=== PATIENT | male | born 1990 | race Caucasian/White ===

== ENCOUNTER 2017-10-05 22:04 | Emergency (ER) | payer BC ==
[2017-10-05] MEDS ORDERED: KETOROLAC 30 MG/ML 1 ML VIAL IVP STA (23:00)
[2017-10-05] MEDS ORDERED: SODIUM CHLORIDE 0.9% 1,000 ML IV STA ×2 (23:00)
[2017-10-05] MEDS ORDERED: ONDANSETRON 4 MG/2 ML VIAL IVP STA (23:00)
[2017-10-05] MEDS ORDERED: ACETAMINOPHEN TAB 500 MG TAB PO STA (23:01)
[2017-10-05] MEDS ORDERED: MORPHINE SULFATE 4 MG/ML SYRINGE IVP STA (23:08)
[2017-10-05 23:45] LABS: Basophils % (A) 0 %; Eosinophils % (A) 1 %; HCT 38.1 % (39.0-53.0); HGB 13.5 gm/dL (13.0-17.5); Lymphocytes # (A) 0.7 k/uL (1.0-4.8); Lymphocytes % (A) 10 %; MCH 30.6 pg (25.0-35.0); MCHC 35.4 g/dL (31.0-37.0); MCV 86.5 fL (80.0-100.0); Mean Platelet Volume 7.8; Monocytes # (A) 0.5 k/uL (0-1.0); Monocytes % (A) 7 %; Neutrophils # (A) 5.6 k/uL (1.3-7.7); Neutrophils % (A) 82 %; Platelet Count 156 k/uL (150-450); RDW 13.3 % (11.5-15.5); WBC 6.8 k/uL (3.8-10.6)
[2017-10-05 23:56] LABS: ALT 33 U/L (21-72); AST 28 U/L (17-59); Albumin 4.5 g/dL (3.5-5.0); Alkaline Phosphatase 59 U/L (38-126); Amylase 49 U/L (30-110); Anion Gap 13 mmol/L; Blood Urea Nitrogen 15 mg/dL (9-20); Calcium 9.2 mg/dL (8.4-10.2); Carbon Dioxide 21 mmol/L (22-30); Chloride 104 mmol/L (98-107); Glucose 90 mg/dL (74-99); Lipase 66 U/L (23-300); Potassium 4.1 mmol/L (3.5-5.1); Sodium 138 mmol/L (137-145); Total Bilirubin 1.1 mg/dL (0.2-1.3); Total Protein 6.9 g/dL (6.3-8.2)
--- NOTE | 2017-10-05 23:56 | ED ---
Abdominal Pain HPI <Elier Kathleen - Last Filed: 10/06/17 00:49> - General Source: patient, RN notes reviewed, old records reviewed Mode of arrival: ambulatory Limitations: no limitations <Kimberly Francois - Last Filed: 10/06/17 04:43> - General Chief Complaint: Abdominal Pain Stated Complaint: Abd pain Time Seen by Provider: 10/05/17 22:59 - History of Present Illness Initial Comments: This Patient is a 26-year-old male with chief complaint of intermittent fevers for the past 3 days. Patient reports that he isn't having off and on right- sided abdominal pain. He reports that today it seemed to be more severe when he came home from work. It's painful whenever he takes a deep breath or moves. Patient states that he is relatively healthy. No significant past medical history. Patient states that he is took some Motrin Tylenol earlier today nothing recently. He rests emergency Department with fever 102. No vomiting but does feel nauseated. He reports he's been having some mild diarrhea. No blood in his stools. (Kimberly Francois) - Related Data Previous Rx's Medication Instructions Recorded Ciprofloxacin HCl [Cipro] 500 mg PO Q12HR 10 Days tab 10/06/17 metroNIDAZOLE [Flagyl] 500 mg PO TID #30 tab 10/06/17 Allergies Allergy/AdvReac Type Severity Reaction Status Date / Time No Known Allergies Allergy Verified 10/05/17 22:27 Review of Systems ROS Other: All systems not noted in ROS Statement are negative. <Elier Kathleen - Last Filed: 10/06/17 00:49> ROS Other: All systems not noted in ROS Statement are negative. <Kimberly Francois - Last Filed: 10/06/17 04:43> ROS Statement: Those systems with pertinent positive or pertinent negative responses have been documented in the HPI. Past Medical History Past Medical History: No Reported History History of Any Multi-Drug Resistant Organisms: None Reported Past Surgical History: No Surgical Hx Reported Past Psychological History: ADD/ADHD, Anxiety, PTSD Smoking Status: Current every day smoker Past Alcohol Use History: None Reported Past Drug Use History: None Reported <Kimberly Francois - Last Filed: 10/06/17 04:43> General Exam <Elier Kathleen - Last Filed: 10/06/17 00:49> Limitations: no limitations General appearance: alert, in no apparent distress Head exam: Present: atraumatic, normocephalic, normal inspection Eye exam: Present: normal appearance, PERRL, EOMI. Absent: scleral icterus, conjunctival injection, periorbital swelling ENT exam: Present: normal exam, mucous membranes moist Neck exam: Present: normal inspection. Absent: tenderness, meningismus, lymphadenopathy Respiratory exam: Present: normal lung sounds bilaterally. Absent: respiratory distress, wheezes, rales, rhonchi, stridor Cardiovascular Exam: Present: regular rate, normal rhythm, normal heart sounds. Absent: systolic murmur, diastolic murmur, rubs, gallop, clicks GI/Abdominal exam: Present: soft, tenderness (Patient has severe guarding and tenderness over the right upper and right lower quadrants.), normal bowel sounds. Absent: distended, guarding, rebound, rigid Extremities exam: Present: normal inspection, full ROM, normal capillary refill. Absent: tenderness, pedal edema, joint swelling, calf tenderness Back exam: Present: normal inspection Neurological exam: Present: alert, oriented X3, CN II-XII intact Psychiatric exam: Present: normal affect, normal mood Skin exam: Present: warm, dry, intact, normal color. Absent: rash <Kimberly Francois - Last Filed: 10/06/17 04:43> - General Exam Comments Initial Comments: This is an alert and oriented 26-year-old male. Patient does. Be in moderate discomfort. (Kimberly Francois) Vital Signs 10/05/17 10/05/17 10/06/17 22:24 23:27 02:58 Temperature 102.2 F H 100.3 F H 97.6 F Pulse Rate 104 H 73 Respiratory 18 16 Rate Blood Pressure 127/75 102/56 O2 Sat by Pulse 99 98 Oximetry Medical Decision Making - Lab Data Result diagrams: 10/05/17 23:24 10/05/17 23:24 <Elier Kathleen - Last Filed: 10/06/17 00:49> - Lab Data Result diagrams: 10/05/17 23:24 10/05/17 23:24 - Radiology Data Radiology results: report reviewed <Kimberly Francois - Last Filed: 10/06/17 04:43> - Medical Decision Making Medical decision making; is a 26-year-old male with a complaint of abdominal pain mainly from the right upper quadrant and right lower quadrant. Patient reports that 3 days ago started having abdominal discomfort and not feeling well in general. He developed a fever at that time. Currently temperature is 102. The patient white count is normal. CAT scan was reviewed and the radiologist's impression is there are mildly dilated distal small bowel loops in the pelvis consistent with ileus. Appendix appears within normal limits. This CAT scan was done without oral contrast. Examination finds patient tender with palpation with guarding from the right upper quadrant the right lower quadrant. Hypoactive bowel sounds.awaiting results of the urinalysis. Case be discussed with medicine in general surgeon on-call. Dr. Kathleen (Elier Kathleen) Case discussed with oncall Surgeon whom states that patient should be admitted to Medicine. Tenderness explained to Dr. Hillman, and he also examined patient. He was doing better at this time. Discussed with normal WBC and normal CT scan besides ileus. Dr. Hillman and I explained this could likely be early appendicitis without lab or CT evidence. I did give Pt Zosyn. Dr. Hillman recommends outpatient treatment with close return parameters. At this time I discussed discharge home and to have close follow up and strict return parameters. In the meantime will treat for colitis or ilues with Cipro and flagyl.Patient agrees to plan. (Kimberly Francois) - Lab Data Lab Results 10/05/17 10/05/17 10/05/17 Range/Units 23:24 23:24 23:24 WBC 6.8 (3.8-10.6) k/uL RBC 4.40 (4.30-5.90) m/uL Hgb 13.5 (13.0-17.5) gm/dL Hct 38.1 L (39.0-53.0) % MCV 86.5 (80.0-100.0) fL MCH 30.6 (25.0-35.0) pg MCHC 35.4 (31.0-37.0) g/dL RDW 13.3 (11.5-15.5) % Plt Count 156 (150-450) k/uL Neutrophils % 82 % Lymphocytes % 10 % Monocytes % 7 % Eosinophils % 1 % Basophils % 0 % Neutrophils # 5.6 (1.3-7.7) k/uL Lymphocytes # 0.7 L (1.0-4.8) k/uL Monocytes # 0.5 (0-1.0) k/uL Eosinophils # 0.0 (0-0.7) k/uL Basophils # 0.0 (0-0.2) k/uL Sodium 138 (137-145) mmol/L Potassium 4.1 (3.5-5.1) mmol/L Chloride 104 (98-107) mmol/L Carbon Dioxide 21 L (22-30) mmol/L Anion Gap 13 mmol/L BUN 15 (9-20) mg/dL Creatinine 1.00 (0.66-1.25) mg/dL Est GFR (CKD-EPI)AfAm >90 (>60 ml/min/1.73 sqM) Est GFR (CKD-EPI)NonAf >90 (>60 ml/min/1.73 sqM) Glucose 90 (74-99) mg/dL Plasma Lactic Acid Junior 0.7 (0.7-2.0) mmol/L Calcium 9.2 (8.4-10.2) mg/dL Total Bilirubin 1.1 (0.2-1.3) mg/dL AST 28 (17-59) U/L ALT 33 (21-72) U/L Alkaline Phosphatase 59 (38-126) U/L Total Protein 6.9 (6.3-8.2) g/dL Albumin 4.5 (3.5-5.0) g/dL Amylase 49 (30-110) U/L Lipase 66 (23-300) U/L Urine Color Urine Appearance (Clear) Urine pH (5.0-8.0) Ur Specific [place] (1.001-1.035) Urine Protein (Negative) Urine Glucose (UA) (Negative) Urine Ketones (Negative) Urine Blood (Negative) Urine Nitrite (Negative) Urine Bilirubin (Negative) Urine Urobilinogen (<2.0) mg/dL Ur Leukocyte Esterase (Negative) Urine RBC (0-5) /hpf Urine WBC (0-5) /hpf Group A Strep Rapid (Negative) 10/06/17 10/06/17 Range/Units 00:59 02:34 WBC (3.8-10.6) k/uL RBC (4.30-5.90) m/uL Hgb (13.0-17.5) gm/dL Hct (39.0-53.0) % MCV (80.0-100.0) fL MCH (25.0-35.0) pg MCHC (31.0-37.0) g/dL RDW (11.5-15.5) % Plt Count (150-450) k/uL Neutrophils % % Lymphocytes % % Monocytes % % Eosinophils % % Basophils % % Neutrophils # (1.3-7.7) k/uL Lymphocytes # (1.0-4.8) k/uL Monocytes # (0-1.0) k/uL Eosinophils # (0-0.7) k/uL Basophils # (0-0.2) k/uL Sodium (137-145) mmol/L Potassium (3.5-5.1) mmol/L Chloride (98-107) mmol/L Carbon Dioxide (22-30) mmol/L Anion Gap mmol/L BUN (9-20) mg/dL Creatinine (0.66-1.25) mg/dL Est GFR (CKD-EPI)AfAm (>60 ml/min/1.73 sqM) Est GFR (CKD-EPI)NonAf (>60 ml/min/1.73 sqM) Glucose (74-99) mg/dL Plasma Lactic Acid Junior (0.7-2.0) mmol/L Calcium (8.4-10.2) mg/dL Total Bilirubin (0.2-1.3) mg/dL AST (17-59) U/L ALT (21-72) U/L Alkaline Phosphatase (38-126) U/L Total Protein (6.3-8.2) g/dL Albumin (3.5-5.0) g/dL Amylase (30-110) U/L Lipase (23-300) U/L Urine Color Light Yellow Urine Appearance Clear (Clear) Urine pH 6.0 (5.0-8.0) Ur Specific [place] 1.033 (1.001-1.035) Urine Protein Negative (Negative) Urine Glucose (UA) Negative (Negative) Urine Ketones Negative (Negative) Urine Blood Small H (Negative) Urine Nitrite Negative (Negative) Urine Bilirubin Negative (Negative) Urine Urobilinogen <2.0 (<2.0) mg/dL Ur Leukocyte Esterase Negative (Negative) Urine RBC 1 (0-5) /hpf Urine WBC <1 (0-5) /hpf Group A Strep Rapid Negative (Negative) - Radiology Data Mildly dilated distal small bowel loops in the pelvis consistent with ileus. Appendix appears normal. (Kimberly Francois) Disposition <HeverElier - Last Filed: 10/06/17 00:49> Is patient prescribed a controlled substance at d/c from ED?: No When asked, does pt state using other controlled substances?: No If prescribed controlled substance>3 days was MAPS reviewed?: No If opioid is for acute pain is fill amount 7 days or less?: No If Rx opioid, was Start Talking consent form obtained?: No Time of Disposition: 02:58 <Kimberly Francois - Last Filed: 10/06/17 04:43> Clinical Impression: Fever, Right lateral abdominal pain Disposition: HOME SELF-CARE Condition: Good Instructions: Acute Abdominal Pain (ED) Additional Instructions: Patient advised to return to emergency department if symptoms are continued persist or worsen within the next 12-24 hours. Clear liquids. Alternate Motrin and Tylenol. Take the medication as prescribed. Is follow-up with primary care physician. Prescriptions: Ciprofloxacin HCl [Cipro] 500 mg PO Q12HR 10 Days tab metroNIDAZOLE [Flagyl] 500 mg PO TID #30 tab Referrals: None,Stated [Primary Care Provider] - 1-2 days Mara Santana MD [STAFF PHYSICIAN] - 1-2 days
--- NOTE | 2017-10-06 00:24 | CT ---
EXAMINATION TYPE: CT abdomen pelvis w con DATE OF EXAM: 10/06/2017 COMPARISON: None HISTORY: fever, RLQ pain CT DLP: 383.80 mGycm Automated exposure control for dose reduction was used. TECHNIQUE: Helical acquisition of images was performed from the lung bases through the pelvis. CONTRAST: Performed without Oral Contrast and with IV Contrast, patient injected with 100 mL of Isovue 300. FINDINGS: Lung bases are clear. There is no pleural effusion. There is no pericardial effusion. There are small calcified splenic granulomata. Liver appears normal. There is no pancreatic mass. Gallbladder appear s normal. There is no adrenal mass. Kidneys show satisfactory contrast opacification. There is no hydronephrosi s. Bladder distends smoothly. There is no ascites. There are some mildly distended small bowel loops in the pelvis with fluid. These measure up to 2.9 cm. Appendix appears to be posterior and not enlarg ed. There is no sign of a thickened appendix. I see no small bowel wall thickening. The bony structur es are intact. IMPRESSION: THERE ARE MILDLY DILATED DISTAL SMALL BOWEL LOOPS IN THE PELVIS CONSISTENT WITH ILEUS. APPENDIX APPEA RS NORMAL.
[2017-10-06 01:19] LABS: Appearance,Urine Clear (Clear); Bilirubin,Urine Negative (Negative); Blood,Urine Small (Negative); Color,Urine Light Yellow; Glucose,Urine (UA) Negative (Negative); Ketones,Urine Negative (Negative); Leukocyte Esterase,Urine Negative (Negative); Nitrite,Urine Negative (Negative); Protein,Urine Negative (Negative); RBC,Urine 1 /hpf (0-5); Specific Gravity,Urine 1.033 (1.001-1.035); Urobilinogen,Urine <2.0 mg/dL (<2.0); WBC,Urine <1 /hpf (0-5)
[2017-10-06] MEDS: PIPERACILLIN-TAZOBACTAM 3.375 GM in DEXTROSE/WATER 1 50ML.BAG IVPB STA ×2 (01:39→01:46)
[2017-10-06 03:00] VITALS: BP 102/56; PULSE 73; RESP 16; TEMP 97.6
== END 2017-10-06 03:54 | disposition home or self-care (01) ==
LOC: EC 22:04
DX: R10.9 Unspecified abdominal pain (principal); R50.9 Fever, unspecified; R11.0 Nausea; F17.200 Nicotine dependence, unspecified, uncomplicated
CPT/HCPCS: 36415; 80053; 82150; 83605; 83690; 85025; 81001; 87040; 87081; 87430; 74177; 99285; 96365; 96366; 96375 ×3; 96361 ×2; J2270; J2405; J1885; J2543; Q9967

== ENCOUNTER 2017-10-07 22:04 | Observation (INO) | payer BC ==
--- NOTE | 2017-10-07 22:44 | XR ---
EXAMINATION TYPE: XR KUB DATE OF EXAM: 10/07/2017 COMPARISON: NONE HISTORY: Abdominal pain TECHNIQUE: 2 views FINDINGS: There is no sign of intestinal obstruction or pneumoperitoneum. Fecal pattern is normal. Th ere are no pathologic calcifications over the kidneys. Lung bases are clear. IMPRESSION: Nonacute abdomen.
[2017-10-07 23:00] LABS: Basophils % (A) 0 %; Eosinophils # (A) 0.1 k/uL (0-0.7); Eosinophils % (A) 1 %; HCT 39.6 % (39.0-53.0); HGB 13.9 gm/dL (13.0-17.5); Lymphocytes # (A) 2.1 k/uL (1.0-4.8); Lymphocytes % (A) 35 %; MCH 30.4 pg (25.0-35.0); MCHC 35.1 g/dL (31.0-37.0); MCV 86.6 fL (80.0-100.0); Mean Platelet Volume 7.9; Monocytes # (A) 0.5 k/uL (0-1.0); Monocytes % (A) 8 %; Neutrophils # (A) 3.4 k/uL (1.3-7.7); Neutrophils % (A) 55 %; Platelet Count 179 k/uL (150-450); RBC 4.57 m/uL (4.30-5.90); RDW 13.2 % (11.5-15.5); WBC 6.1 k/uL (3.8-10.6)
[2017-10-07 23:14] LABS: ALT 29 U/L (21-72); AST 25 U/L (17-59); Albumin 4.2 g/dL (3.5-5.0); Alkaline Phosphatase 49 U/L (38-126); Amylase 47 U/L (30-110); Anion Gap 9 mmol/L; Blood Urea Nitrogen 13 mg/dL (9-20); Calcium 9.2 mg/dL (8.4-10.2); Carbon Dioxide 27 mmol/L (22-30); Chloride 104 mmol/L (98-107); Glucose 74 mg/dL (74-99); Lipase 114 U/L (23-300); Sodium 140 mmol/L (137-145); Total Bilirubin 0.7 mg/dL (0.2-1.3); Total Protein 6.9 g/dL (6.3-8.2)
[2017-10-07] MEDS ORDERED: IBUPROFEN 600 MG TAB PO STA (23:50)
[2017-10-07] MEDS ORDERED: ACETAMINOPHEN TAB 500 MG TAB PO STA (23:50)
--- NOTE | 2017-10-08 01:03 | US ---
EXAMINATION TYPE: US gallbladder DATE OF EXAM: 10/08/2017 COMPARISON: NONE CLINICAL HISTORY: Pain. RUQ pain EXAM MEASUREMENTS: Liver Length: 14.6 cm Gallbladder Wall: 0.28 cm CBD: 0.22 cm Right Kidney: 9.2 x 3.8 x 5.2 cm Pancreas: wnl Liver: wnl Gallbladder: Ring down artifact visualized. Evidence for sonographic Cifuentes's sign: No CBD: wnl Right Kidney: wnl IMPRESSION: Contracted gallbladder. No gallstones or dilated ducts.
--- NOTE | 2017-10-08 01:17 | ED ---
General Adult HPI - General Chief complaint: Abdominal Pain Stated complaint: abdominal pain Time Seen by Provider: 10/07/17 22:15 Source: patient, RN notes reviewed Mode of arrival: ambulatory Limitations: no limitations - History of Present Illness Initial comments: This is a 26-year-old male who presents to the emergency department complaining of abdominal pain for a week. Patient states she was seen in the emergency department on Saturday and had a CAT scan and lab work and all was normal. Patient was placed on antibiotics at that time. Patient states he's also been spiking fevers as high as 104 since the abdominal pain started. Patient denies nausea vomiting or has had 1 day of diarrhea last . Patient states the pain was initially in the right lower quadrant but now he has pain in the right upper quadrant which spreads across to the epigastric area. Patient denies any chest pain patient does any cough patient denies any shortness of breath or difficulty breathing. - Related Data Previous Rx's Medication Instructions Recorded Ciprofloxacin HCl [Cipro] 500 mg PO Q12HR 10 Days tab 10/06/17 metroNIDAZOLE [Flagyl] 500 mg PO TID #30 tab 10/06/17 Allergies Allergy/AdvReac Type Severity Reaction Status Date / Time No Known Allergies Allergy Verified 10/07/17 23:45 Review of Systems ROS Statement: Those systems with pertinent positive or pertinent negative responses have been documented in the HPI. ROS Other: All systems not noted in ROS Statement are negative. Past Medical History Past Medical History: No Reported History History of Any Multi-Drug Resistant Organisms: None Reported Past Surgical History: No Surgical Hx Reported Past Psychological History: ADD/ADHD, Anxiety, PTSD Smoking Status: Current every day smoker Past Alcohol Use History: None Reported Past Drug Use History: None Reported General Exam - General Exam Comments Initial Comments: GENERAL: Patient is well-developed and well-nourished. Patient is nontoxic and well- hydrated and is in moderate distress. ENT: Neck is soft and supple. No significant lymphadenopathy is noted. Oropharynx is clear. Moist mucous membranes. EYES: The sclera were anicteric and conjunctiva were pink and moist. Extraocular movements were intact and pupils were equal round and reactive to light. Eyelids were unremarkable. PULMONARY: Unlabored respirations. Good breath sounds bilaterally. No audible rales rhonchi or wheezing was noted. CARDIOVASCULAR: There is a regular rate and rhythm without any murmurs gallops or rubs. Femoral pulses are equal bilaterally ABDOMEN: Patient has rebound tenderness in the right upper quadrant. SKIN: Skin is clear with no lesions or rashes and otherwise unremarkable. NEUROLOGIC: Patient is alert and oriented x3. Cranial nerves II through XII are grossly intact. Motor and sensory are also intact. Normal speech, volume and content. Symmetrical smile. MUSCULOSKELETAL: Normal extremities with adequate strength and full range of motion. No lower extremity swelling or edema. No calf tenderness. LYMPHATICS: No significant lymphadenopathy is noted PSYCHIATRIC: Normal psychiatric evaluation. Limitations: no limitations Course Vital Signs 10/07/17 10/07/17 10/08/17 22:15 23:45 01:05 Temperature 99.8 F H 101 F H 99.8 F H Pulse Rate 83 72 66 Respiratory 18 18 18 Rate Blood Pressure 124/74 127/70 115/75 O2 Sat by Pulse 98 98 99 Oximetry Medical Decision Making - Lab Data Result diagrams: 10/07/17 22:49 10/07/17 22:49 Lab Results 10/07/17 10/07/17 10/07/17 Range/Units 22:49 22:49 22:49 WBC 6.1 (3.8-10.6) k/uL RBC 4.57 (4.30-5.90) m/uL Hgb 13.9 (13.0-17.5) gm/dL Hct 39.6 (39.0-53.0) % MCV 86.6 (80.0-100.0) fL MCH 30.4 (25.0-35.0) pg MCHC 35.1 (31.0-37.0) g/dL RDW 13.2 (11.5-15.5) % Plt Count 179 (150-450) k/uL Neutrophils % 55 % Lymphocytes % 35 % Monocytes % 8 % Eosinophils % 1 % Basophils % 0 % Neutrophils # 3.4 (1.3-7.7) k/uL Lymphocytes # 2.1 (1.0-4.8) k/uL Monocytes # 0.5 (0-1.0) k/uL Eosinophils # 0.1 (0-0.7) k/uL Basophils # 0.0 (0-0.2) k/uL Sodium 140 (137-145) mmol/L Potassium 4.0 (3.5-5.1) mmol/L Chloride 104 (98-107) mmol/L Carbon Dioxide 27 (22-30) mmol/L Anion Gap 9 mmol/L BUN 13 (9-20) mg/dL Creatinine 1.00 (0.66-1.25) mg/dL Est GFR (CKD-EPI)AfAm >90 (>60 ml/min/1.73 sqM) Est GFR (CKD-EPI)NonAf >90 (>60 ml/min/1.73 sqM) Glucose 74 (74-99) mg/dL Plasma Lactic Acid Junior 0.8 (0.7-2.0) mmol/L Calcium 9.2 (8.4-10.2) mg/dL Total Bilirubin 0.7 (0.2-1.3) mg/dL AST 25 (17-59) U/L ALT 29 (21-72) U/L Alkaline Phosphatase 49 (38-126) U/L Total Protein 6.9 (6.3-8.2) g/dL Albumin 4.2 (3.5-5.0) g/dL Amylase 47 (30-110) U/L Lipase 114 (23-300) U/L Disposition Clinical Impression: Abdominal pain, Fever of unknown origin, Acute infection of female upper reproductive tract Disposition: ADMITTED IP TO THIS HOSP Referrals: None,Stated [Primary Care Provider] - 1-2 days Time of Disposition: 01:27
[2017-10-08] MEDS ORDERED: PIPERACILLIN-TAZOBACTAM 3.375 GM in DEXTROSE/WATER 1 50ML.BAG IVPB STA (01:21)
[2017-10-08] MEDS ORDERED: SODIUM CHLORIDE 0.9% 1,000 ML IV ONE (01:22)
[2017-10-08 01:51] LABS: Appearance,Urine Clear (Clear); Bilirubin,Urine Negative (Negative); Blood,Urine Trace (Negative); Color,Urine Yellow; Glucose,Urine (UA) Negative (Negative); Hyaline Casts,Urine 1 /lpf (0-2); Ketones,Urine Negative (Negative); Leukocyte Esterase,Urine Negative (Negative); Mucus,Urine Rare /hpf; Nitrite,Urine Negative (Negative); Protein,Urine Negative (Negative); RBC,Urine 2 /hpf (0-5); Specific Gravity,Urine 1.011 (1.001-1.035); Urobilinogen,Urine <2.0 mg/dL (<2.0); WBC,Urine <1 /hpf (0-5)
[2017-10-08] MEDS: PIPERACILLIN-TAZOBACTAM 3.375 GM in DEXTROSE/WATER 1 50ML.BAG IVPB SCH ×2 (08:36→18:04)
[2017-10-08] MEDS ORDERED: IOPAMIDOL-300 CONTRAST 30 ML VIAL (ORAL USE) PO PRN (11:43)
[2017-10-08] MEDS ORDERED: ONDANSETRON 4 MG/2 ML VIAL IVP PRN (11:45)
--- NOTE | 2017-10-08 12:55 | P.CONS ---
History of Present Illness - Reason for Consult Consult date: 10/08/17 Fever of unknown origin - History of Present Illness This is a 26-year-old male patient who has no significant past medical history. He states that he had onset of abdominal pain about 1 week ago and the next day he started having fever up to 104. Positive nausea which is mild without vomiting. He has since had diarrhea one day on and a small amount on Saturday. His pain is in the right upper quadrant and epigastric area He came into [facility] emergency center on Saturday and underwent a CAT scan that showed mildly dilated distal small bowel loops in the pelvis consistent with ileus. Appendix appears normal. His temperature max is 102.2, normal white count is 6.8. The on-call surgeon was contacted, patient was given 1 dose of Zosyn and patient was discharged home on Cipro and Flagyl. Patient states that he went home and he slept all day on Saturday and he had his prescriptions filled and started taking them on Saturday. Flagyl causes vomiting for which he stopped taking it. He has continued to take Cipro. He denies having any improvement. He came back into [facility] emergency center for evaluation and was found to have a temperature max of 101, white count is 6.1, creatinine 1, lactic acid 0.8, albumin 4.2. Urinalysis was negative for nitrates and leukoesterase. Blood culture status received. Patient was started on Zosyn. KUB shows nonacute abdomen. CAT scan with contrast of the abdomen and pelvis has been ordered. His blood culture from October 05 showing no growth after 48 hours and a group A strep cultures finalized with no growth. Review of Systems All systems: negative Constitutional: Reports anorexia, Reports chills, Reports fever, Reports poor appetite Eyes: denies blurred vision, denies pain Ears, nose, mouth and throat: Reports sore throat, Denies dental pain, Denies headache, Denies mouth pain Cardiovascular: Denies chest pain, Denies decreased exercise tolerance, Denies dyspnea on exertion, Denies edema, Denies leg edema, Denies lightheadedness, Denies shortness of breath, Denies syncope Respiratory: Denies cough, Denies cough with sputum, Denies dyspnea, Denies excessive sputum, Denies hemoptysis, Denies home oxygen, Denies wheezing Gastrointestinal: Reports abdominal pain, Reports diarrhea, Reports loss of appetite, Reports nausea, Denies vomiting Genitourinary: Denies dysuria, Denies urinary frequency, Denies urinary retention Musculoskeletal: Denies myalgias Integumentary: Denies pruritus, Denies rash, Denies wounds Neurological: Denies numbness, Denies weakness Psychiatric: Denies anxiety, Denies depression Endocrine: Denies fatigue, Denies weight change Past Medical History Past Medical History: Pneumonia Additional Past Medical History / Comment(s): Recent constipation with diarrhea 10/05/17 and prior to that solid stool 09/28/17, bacterial pneumonia 10 yrs ago History of Any Multi-Drug Resistant Organisms: None Reported Past Surgical History: No Surgical Hx Reported Additional Past Anesthesia/Blood Transfusion Reaction / Comm: Pt has never had anesthesia. Pt has never received blood. Past Psychological History: ADD/ADHD, Anxiety, PTSD Smoking Status: Current every day smoker Additional Past Alcohol Use History / Comment(s): Patient is a smoker of pack per day and started 2007. He lives at home with his and 2 children. 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 He has served in the [employer] in [employer]. - Past Family History Father Additional Family Medical History / Comment(s): Father committed suicide. Mother Family Medical History: Cancer Additional Family Medical History / Comment(s): Mother from metastatic breast cancer at the age of 49yrs. Medications and Allergies Home Medications Medication Instructions Recorded Confirmed Type Ciprofloxacin HCl [Cipro] 500 mg PO Q12HR 10 Days tab 10/06/17 10/07/17 Rx metroNIDAZOLE [Flagyl] 500 mg PO TID #30 tab 10/06/17 10/07/17 Rx Allergies Allergy/AdvReac Type Severity Reaction Status Date / Time No Known Allergies Allergy Verified 10/07/17 23:45 Physical Exam Vitals: Vital Signs Temp Pulse Resp BP Pulse Ox 10/08/17 06:20 97.9 F 52 L 19 105/59 100 10/08/17 01:41 98.7 F 10/08/17 01:05 99.8 F H 66 18 115/75 99 10/07/17 23:45 101 F H 72 18 127/70 98 10/07/17 22:15 99.8 F H 83 18 124/74 98 Intake and Output 07/10/08/17 10/08/17 22:59 06:59 14:59 Other: Weight 63.503 kg Gen: This is a 26-year-old male patient in the ER stretcher. Patient appears somewhat uncomfortable but in no acute distress. HEENT: Head is atraumatic, normocephalic. Pupils equal, round. Sclerae is anicteric. NECK: Supple. No JVD. No lymphadenopathy. No thyromegaly. LUNGS: Clear to auscultation. No wheezes or rhonchi. No intercostal retractions. HEART: Regular rate and rhythm. No murmur. ABDOMEN: Soft. Bowel sounds are present. No masses. Right upper quadrant and epigastric tenderness. EXTREMITIES: No pedal edema. No calf tenderness. Dorsalis pedis +2 bilaterally. NEUROLOGICAL: Patient is awake, alert and oriented x3. Cranial nerves 2 through 12 are grossly intact. Results Results: Laboratory Results WBC 6.1 k/uL (3.8-10.6) 10/07/17 22:49 RBC 4.57 m/uL (4.30-5.90) 10/07/17 22:49 Hgb 13.9 gm/dL (13.0-17.5) 10/07/17 22:49 Hct 39.6 % (39.0-53.0) 10/07/17 22:49 MCV 86.6 fL (80.0-100.0) 10/07/17 22:49 MCH 30.4 pg (25.0-35.0) 10/07/17 22:49 MCHC 35.1 g/dL (31.0-37.0) 10/07/17 22:49 RDW 13.2 % (11.5-15.5) 10/07/17 22:49 Plt Count 179 k/uL (150-450) 10/07/17 22:49 Neutrophils % 55 % 10/07/17 22:49 Lymphocytes % 35 % 10/07/17 22:49 Monocytes % 8 % 10/07/17 22:49 Eosinophils % 1 % 10/07/17 22:49 Basophils % 0 % 10/07/17 22:49 Neutrophils # 3.4 k/uL (1.3-7.7) 10/07/17 22:49 Lymphocytes # 2.1 k/uL (1.0-4.8) 10/07/17 22:49 Monocytes # 0.5 k/uL (0-1.0) 10/07/17 22:49 Eosinophils # 0.1 k/uL (0-0.7) 10/07/17 22:49 Basophils # 0.0 k/uL (0-0.2) 10/07/17 22:49 Sodium 140 mmol/L (137-145) 10/07/17 22:49 Potassium 4.0 mmol/L (3.5-5.1) 10/07/17 22:49 Chloride 104 mmol/L (98-107) 10/07/17 22:49 Carbon Dioxide 27 mmol/L (22-30) 10/07/17 22:49 Anion Gap 9 mmol/L 10/07/17 22:49 BUN 13 mg/dL (9-20) 10/07/17 22:49 Creatinine 1.00 mg/dL (0.66-1.25) 10/07/17 22:49 Est GFR (CKD-EPI)AfAm >90 (>60 ml/min/1.73 sqM) 10/07/17 22:49 Est GFR (CKD-EPI)NonAf >90 (>60 ml/min/1.73 sqM) 10/07/17 22:49 Glucose 74 mg/dL (74-99) 10/07/17 22:49 Plasma Lactic Acid Junior 0.8 mmol/L (0.7-2.0) 10/07/17 22:49 Calcium 9.2 mg/dL (8.4-10.2) 10/07/17 22:49 Total Bilirubin 0.7 mg/dL (0.2-1.3) 10/07/17 22:49 AST 25 U/L (17-59) 10/07/17 22:49 ALT 29 U/L (21-72) 10/07/17 22:49 Alkaline Phosphatase 49 U/L (38-126) 10/07/17 22:49 Total Protein 6.9 g/dL (6.3-8.2) 10/07/17 22:49 Albumin 4.2 g/dL (3.5-5.0) 10/07/17 22:49 Amylase 47 U/L (30-110) 07/16/18 22:49 Lipase 114 U/L (23-300) 10/07/17 22:49 Urine Color Yellow 10/08/17 01:07 Urine Appearance Clear (Clear) 10/08/17 01:07 Urine pH 6.0 (5.0-8.0) 10/08/17 01:07 Ur Specific [place] 1.011 (1.001-1.035) 10/08/17 01:07 Urine Protein Negative (Negative) 10/08/17 01:07 Urine Glucose (UA) Negative (Negative) 10/08/17 01:07 Urine Ketones Negative (Negative) 10/08/17 01:07 Urine Blood Trace (Negative) H 10/08/17 01:07 Urine Nitrite Negative (Negative) 10/08/17 01:07 Urine Bilirubin Negative (Negative) 10/08/17 01:07 Urine Urobilinogen <2.0 mg/dL (<2.0) 10/08/17 01:07 Ur Leukocyte Esterase Negative (Negative) 10/08/17 01:07 Urine RBC 2 /hpf (0-5) 10/08/17 01:07 Urine WBC <1 /hpf (0-5) 10/08/17 01:07 Hyaline Casts 1 /lpf (0-2) 10/08/17 01:07 Urine Mucus Rare /hpf (None) H 10/08/17 01:07 CBC & Chem 7: 10/07/17 22:49 10/07/17 22:49 Labs: Abnormal Lab Results - Last 24 Hours (Table) 10/08/17 Range/Units 01:07 Urine Blood Trace H (Negative) Urine Mucus Rare H (None) /hpf Assessment and Plan Plan: Is is a 26-year-old male patient presented to the hospital with fever and right upper quadrant and epigastric abdominal pain. Etiology is unclear at this time. Patient has had a CAT scan on Saturday that did show possible small ileus. Repeat CAT scan is ordered for today. Surgical consult is in place. Blood culture has status received. Further recommendations as patient progresses. The above dictated assessment and findings were discussed with Dr. Mckee. The impression and plan of care have been directed as dictated. Irene Hopkins nurse practitioner acting as scribe for Dr. Mckee.
--- NOTE | 2017-10-08 14:25 | CT ---
EXAMINATION TYPE: CT abdomen pelvis w con DATE OF EXAM: 10/08/2017 COMPARISON: 10/05/2017 HISTORY: 26-year-old male Right side abdominal pain and fever TECHNIQUE: Contiguous axial scanning of the abdomen and pelvis following administration of 100 ml Omn ipaque 300 IV contrast. Delayed images through the kidneys and coronal/sagittal reconstructions perf ormed. CT DLP: 363.9 mGycm Automated exposure control for dose reduction was used. FINDINGS: Heart normal size without pericardial effusion. Some strandy dependent left basilar atelectasis. No p leural effusion. Arterial phase imaging shows no gross abnormality of the liver. Portal venous system is patent on the delayed kidney images. Gallbladder, adrenal glands, kidneys, and pancreas appear within normal limits. Numerous calcified gr anulomas in the spleen. No dilated small bowel, free fluid, or free air. Portions of a normal air-filled appendix are visualized. No findings of acute appendicitis in the rig ht lower quadrant. Mildly enlarged right lower quadrant mesenteric lymph nodes measure up to 7 mm, refer to coronal imag es 21 through 26. Moderate stool burden without pericolonic inflammatory change. There is some possible mild irregular wall thickening of the terminal ileum, refer to coronal image 20. Bladder is urine distended. Small amount of pelvic free fluid is new. No pelvic lymphadenopathy seen. Bones: Mild degenerative disc disease with disc space narrowing at L5-S1. No osseous destructive proc ess. IMPRESSION: 1. PORTIONS OF A NORMAL AIR-FILLED APPENDIX ARE NOTED. NO FINDINGS TO SUGGEST ACUTE APPENDICITIS. 2. BORDERLINE AND MILDLY ENLARGED RIGHT LOWER QUADRANT MESENTERIC LYMPH NODES MEASURING UP TO 7 MM ME OBABLY REACTIVE. CORRELATE FOR MESENTERIC ADENITIS. 3. SLIGHT IRREGULAR WALL THICKENING OF THE TERMINAL ILEUM COULD REPRESENT INFECTIOUS OR INFLAMMATORY TERMINAL ILEITIS. AGAIN, CLINICALLY CORRELATE. 4. MILD PELVIC FREE FLUID IS NEW AND PROBABLY REACTIVE.
--- NOTE | 2017-10-08 15:27 | P.HPIM ---
History of Present Illness 26-year-old pleasant gentleman came in with comments of abdominal pain starting in the right lower quadrant extending up and involving the transverse colon area. Patient had a CAT scan of the abdomen on Saturday which showed enteritis and patient was subsequently discharged home concerning patient has viral gastroenteritis patient's symptoms has worsened since then patient had 2 episodes of diarrhea at the time which resolved at this point of time patient denied any diarrhea at this time patient was given prescription of ciprofloxacin and metronidazole although there is no runs of for diverticulitis or any other colitis. I repeated the CAT scan again because of the severity of symptoms with the pain up around 8/10 crampy in nature. Which is concerning for inflammation the terminal ileum with the lymphadenopathy concerning for Crohn's colitis. Patient was started on low-dose of steroid patient is also getting antibiotics may not require antibiotics but for now will hear lesion on antibiotics patient may need consultation from gastroenterology gastroneurology will be consulted. May need a colonoscopy A there are as an inpatient or an outpatient we'll also obtain p ANCA Review of Systems REVIEW OF SYSTEMS: CONSTITUTIONAL: No fever, no malaise, no fatigue. HEENT: No recent visual problems or hearing problems. Denied any sore throat. CARDIOVASCULAR: No chest pain, orthopnea, PND, no palpitations, no syncope. PULMONARY: No shortness of breath, no cough, no hemoptysis. GASTROINTESTINAL: As mentioned in HPI NEUROLOGICAL: No headaches, no weakness, no numbness. HEMATOLOGICAL: Denies any bleeding or petechiae. GENITOURINARY: Denies any burning micturition, frequency, or urgency. MUSCULOSKELETAL/RHEUMATOLOGICAL: Denies any joint pain, swelling, or any muscle pain. ENDOCRINE: Denies any polyuria or polydipsia. The rest of the 14-point review of systems is negative. Past Medical History Past Medical History: Pneumonia Additional Past Medical History / Comment(s): Recent constipation with diarrhea 10/05/17 and prior to that solid stool 09/28/17, bacterial pneumonia 10 yrs ago History of Any Multi-Drug Resistant Organisms: None Reported Past Surgical History: No Surgical Hx Reported Additional Past Anesthesia/Blood Transfusion Reaction / Comment(s): Pt has never had anesthesia. Pt has never received blood. Past Psychological History: ADD/ADHD, Anxiety, PTSD Smoking Status: Current every day smoker Additional Past Alcohol Use History / Comment(s): Patient is a smoker of pack per day and started 2007. He lives at home with his and 2 children. 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 He has served in the [employer] in [place]. - Past Family History Father Additional Family Medical History / Comment(s): Father committed suicide. Mother Family Medical History: Cancer Additional Family Medical History / Comment(s): Mother from metastatic breast cancer at the age of 49yrs. Medications and Allergies Home Medications Medication Instructions Recorded Confirmed Type Ciprofloxacin HCl [Cipro] 500 mg PO Q12HR 10 Days tab 10/06/17 10/07/17 Rx metroNIDAZOLE [Flagyl] 500 mg PO TID #30 tab 10/06/17 10/07/17 Rx Allergies Allergy/AdvReac Type Severity Reaction Status Date / Time No Known Allergies Allergy Verified 10/07/17 23:45 Physical Exam Vitals: Vital Signs Temp Pulse Pulse Resp BP BP Pulse Ox 10/08/17 15:00 97.8 F 56 L 16 117/75 100 10/08/17 06:20 97.9 F 52 L 19 105/59 100 10/08/17 01:41 98.7 F 10/08/17 01:05 99.8 F H 66 18 115/75 99 10/07/17 23:45 101 F H 72 18 127/70 98 10/07/17 22:15 99.8 F H 83 18 124/74 98 Intake and Output 10/08/17 10/08/17 10/08/17 06:59 14:59 22:59 Intake Total 650 Balance 650 Intake: Intake, IV Titration 650 Amount Piperacillin-Tazobactam 3 50 .375 gm In Dextrose/Water 1 50ml.bag @ 12.5 mls/hr IVPB Q8HR [facility] Rx#: [id number] Sodium Chloride 0.9% 1, 600 000 ml @ 75 mls/hr IV . [id number] Rx#:[id number] Other: Voiding Method Toilet Weight 63.503 kg PHYSICAL EXAMINATION: GENERAL: The patient is alert and oriented x3, not in any acute distress. Well developed, well nourished. HEENT: Pupils are round and equally reacting to light. EOMI. No scleral icterus. No conjunctival pallor. Normocephalic, atraumatic. No pharyngeal erythema. No thyromegaly. CARDIOVASCULAR: S1 and S2 present. No murmurs, rubs, or gallops. PULMONARY: Chest is clear to auscultation, no wheezing or crackles. ABDOMEN: Tenderness in the right lower quadrant MUSCULOSKELETAL: No joint swelling or deformity. EXTREMITIES: No cyanosis, clubbing, or pedal edema. NEUROLOGICAL: Gross neurological examination did not reveal any focal deficits. SKIN: No rashes. Results CBC & Chem 7: 10/07/17 22:49 10/07/17 22:49 Labs: Abnormal Lab Results - Last 24 Hours (Table) 10/08/17 Range/Units 01:07 Urine Blood Trace H (Negative) Urine Mucus Rare H (None) /hpf Thrombosis Risk Factor Assmnt - Choose All That Apply Any of the Below Risk Factors Present?: No Other Risk Factors: No Other congenital or acquired thrombophilia - If yes, enter type in comment: No Thrombosis Risk Factor Assessment Level: Very Low Risk Assessment and Plan Plan: -Abdominal pain secondary to colitis concerning for Crohn's colitis no family history of inflammatory bowel disease will consult gastroenterology patient will do given empiric 20 twice a day of oral steroids. Patient on antibiotics which is probably appropriate at this time considering we don't have the diagnosis of inflammatory bowel disease yet and patient had fever on admission. - systemic inflammatory response syndrome: Secondary to Crohn's colitis most probably -Anxiety disorder -Nicotine use: Counseling was provided
[2017-10-08 18:16] LABS: Hepatitis A Antibody IgM Non-Reactive (Non-Reactive); Hepatitis B Core IgM Non-Reactive (Non-Reactive)
[2017-10-08] MEDS: predniSONE 20 MG TAB PO SCH (19:58)
--- NOTE | 2017-10-08 20:21 | P.GSCN ---
History of Present Illness Consult date: 10/08/17 History of present illness: Patient is a 26-year-old male admitted for abdominal pain. He reports abdominal pain is ongoing for 4+ days to 5 days. He usually eats at least 5 meals a day. His appetite has been blunted. He reports pain is in the lower abdomen. Workup including gallbladder ultrasound inconclusive secondary to contracted gallbladder. General surgery consultation is for abdominal pain. ABDOMEN: Soft. Nondistended. Nontender. No peritonitis. PLAN: 1. Studies were reviewed including CT as well as ultrasound. No definitive evidence for cause of abdominal pain. 2. No surgical intervention at this time. 3. Potential for Crohn's and will need additional serology. 4. Recommend GI consultation. Past Medical History Past Medical History: Pneumonia Additional Past Medical History / Comment(s): Recent constipation with diarrhea 10/05/17 and prior to that solid stool 09/28/17, bacterial pneumonia 10 yrs ago History of Any Multi-Drug Resistant Organisms: None Reported Past Surgical History: No Surgical Hx Reported Additional Past Anesthesia/Blood Transfusion Reaction / Comm: Pt has never had anesthesia. Pt has never received blood. Past Psychological History: ADD/ADHD, Anxiety, PTSD Smoking Status: Current every day smoker Additional Past Alcohol Use History / Comment(s): Patient is a smoker of pack per day and started 2007. He lives at home with his and 2 children. 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 He has served in the [employer] in [place]. - Past Family History Father Additional Family Medical History / Comment(s): Father committed suicide. Mother Family Medical History: Cancer Additional Family Medical History / Comment(s): Mother from metastatic breast cancer at the age of 49yrs. Medications and Allergies Home Medications Medication Instructions Recorded Confirmed Type Ciprofloxacin HCl [Cipro] 500 mg PO Q12HR 10 Days tab 10/06/17 10/07/17 Rx metroNIDAZOLE [Flagyl] 500 mg PO TID #30 tab 10/06/17 10/07/17 Rx Allergies Allergy/AdvReac Type Severity Reaction Status Date / Time No Known Allergies Allergy Verified 10/07/17 23:45 Surgical - Exam Vital Signs Temp Pulse Resp BP Pulse Ox 99.8 F H 83 18 124/74 98 10/07/17 22:15 10/07/17 22:15 10/07/17 22:15 10/07/17 22:15 10/07/17 22:15 Results - Labs 10/07/17 22:49 10/07/17 22:49 Abnormal Lab Results - Last 24 Hours (Table) 10/08/17 10/08/17 Range/Units 01:07 14:25 C-Reactive Protein 40.5 H (<10.0) mg/L Urine Blood Trace H (Negative) Urine Mucus Rare H (None) /hpf Diabetes panel 10/07/17 Range/Units 22:49 Sodium 140 (137-145) mmol/L Potassium 4.0 (3.5-5.1) mmol/L Chloride 104 (98-107) mmol/L Carbon Dioxide 27 (22-30) mmol/L BUN 13 (9-20) mg/dL Creatinine 1.00 (0.66-1.25) mg/dL Glucose 74 (74-99) mg/dL Calcium 9.2 (8.4-10.2) mg/dL AST 25 (17-59) U/L ALT 29 (21-72) U/L Alkaline Phosphatase 49 (38-126) U/L Total Protein 6.9 (6.3-8.2) g/dL Albumin 4.2 (3.5-5.0) g/dL Calcium panel 10/07/17 Range/Units 22:49 Calcium 9.2 (8.4-10.2) mg/dL Albumin 4.2 (3.5-5.0) g/dL Pituitary panel 10/07/17 Range/Units 22:49 Sodium 140 (137-145) mmol/L Potassium 4.0 (3.5-5.1) mmol/L Chloride 104 (98-107) mmol/L Carbon Dioxide 27 (22-30) mmol/L BUN 13 (9-20) mg/dL Creatinine 1.00 (0.66-1.25) mg/dL Glucose 74 (74-99) mg/dL Calcium 9.2 (8.4-10.2) mg/dL Adrenal panel 10/07/17 Range/Units 22:49 Sodium 140 (137-145) mmol/L Potassium 4.0 (3.5-5.1) mmol/L Chloride 104 (98-107) mmol/L Carbon Dioxide 27 (22-30) mmol/L BUN 13 (9-20) mg/dL Creatinine 1.00 (0.66-1.25) mg/dL Glucose 74 (74-99) mg/dL Calcium 9.2 (8.4-10.2) mg/dL Total Bilirubin 0.7 (0.2-1.3) mg/dL AST 25 (17-59) U/L ALT 29 (21-72) U/L Alkaline Phosphatase 49 (38-126) U/L Total Protein 6.9 (6.3-8.2) g/dL Albumin 4.2 (3.5-5.0) g/dL
[2017-10-08] MEDS ORDERED: KETOROLAC 30 MG/ML 1 ML VIAL IVP PRN (20:59)
--- NOTE | 2017-10-08 21:56 | P.CON ---
Consult Note - . Consult date: 10/08/17 Assessment/Plan:: This is a 26-year-old male patient who has no significant past medical history. He states that he had onset of abdominal pain about 1 week ago and the next day he started having fever up to 104. Positive nausea which is mild without vomiting. He has since had diarrhea one day on and a small amount on Saturday. His pain is in the right upper quadrant and epigastric area He came into [facility] emergency center on Saturday and underwent a CAT scan that showed mildly dilated distal small bowel loops in the pelvis consistent with ileus. Appendix appears normal. His temperature max is 102.2, normal white count is 6.8. The on-call surgeon was contacted, patient was given 1 dose of Zosyn and patient was discharged home on Cipro and Flagyl. Patient states that he went home and he slept all day on Saturday and he had his prescriptions filled and started taking them on Saturday. Flagyl causes vomiting for which he stopped taking it. He has continued to take Cipro. He denies having any improvement. He came back into [facility] emergency center for evaluation and was found to have a temperature max of 101, white count is 6.1, creatinine 1, lactic acid 0.8, albumin 4.2. Urinalysis was negative for nitrates and leukoesterase. Blood culture status received. Patient was started on Zosyn. KUB shows nonacute abdomen. CAT scan with contrast of the abdomen and pelvis has been ordered. His blood culture from October 05 showing no growth after 48 hours and a group A strep cultures finalized with no growth. Please see the consult is dictated by nurse practitioner Mrs. 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 Patient as noted has the sudden onset of significant abdominal pain and was seen in the emergency center day prior. Imaging studies were performed possibility of minimal ileus. The patient improved and was discharged home. He now presents with significant fever 102.2 and progressive abdominal pain. As noted on the exam he has distinct tenderness throughout the abdomen. There is also evidence of some abnormal swelling to his left forearm along its medial aspect and has evidence of mild lymphadenopathy into the left axilla as well as into the right inguinal area. These areas are very tender to manipulation at this time. And have developed over the last days time. Follow-up computed tomography scan has been requested. Concerns with an underlying viral infection and workup was initiated. Complains of viral study is requested, sed rate, CRP, and hepatitis testing or requested. The patient relates that his is only sexual partner and has been for greater than the last 4 years. Denies other HIV risk factors. Surgical consult has been requested. Given the patient's age fever and significant abdominal symptoms underlying inflammatory condition is also of concern, such as onset of inflammatory bowel disease. Patient will be monitored. Pain control is adequate at this time. Tylenol as needed for fever. Blood cultures are in process. I agree with evaluation, assessment and plan as dictated by nurse practitioner Mrs. Irene Hopkins.
[2017-10-09] MEDS: PIPERACILLIN-TAZOBACTAM 3.375 GM in DEXTROSE/WATER 1 50ML.BAG IVPB SCH ×3 (04:24→15:47)
[2017-10-09 08:29] LABS: HCT 39.5 % (39.0-53.0); MCH 31.6 pg (25.0-35.0); MCHC 35.5 g/dL (31.0-37.0); MCV 89.1 fL (80.0-100.0); Mean Platelet Volume 8.2; Platelet Count 260 k/uL (150-450); RBC 4.43 m/uL (4.30-5.90); RDW 13.5 % (11.5-15.5)
[2017-10-09 09:23] LABS: Anion Gap 10 mmol/L; Blood Urea Nitrogen 16 mg/dL (9-20); Calcium 8.7 mg/dL (8.4-10.2); Carbon Dioxide 23 mmol/L (22-30); Chloride 106 mmol/L (98-107); Glucose 87 mg/dL (74-99); Potassium 4.6 mmol/L (3.5-5.1); Sodium 139 mmol/L (137-145)
[2017-10-09] MEDS: predniSONE 20 MG TAB PO SCH ×2 (09:29→21:09)
--- NOTE | 2017-10-09 10:22 | P.CONS ---
History of Present Illness - Reason for Consult Consult date: 10/09/17 Abdominal pain fever Crohn's evaluation Requesting physician: Alexandrea Gorman - History of Present Illness 26-year-old male with no significant past medical history presents with chronic right lower abdominal pain fever constipation for the last 3-5 days. T-max 102. Last bowel movement was Saturday passing small amount of flatus. Patient was evaluated in the emergency room on October 05 regarding these symptoms T-max [address] reported a mildly dilated distal small bowel loops in the pelvis consistent with ileus appendix appeared normal. He was provided antibiotics and discharged his symptoms do not improve he returns the emergency room yesterday repeat computed tomography scan of the abdomen and pelvis reported portions were normal air-filled appendix no evidence of acute appendicitis. Borderline mildly enlarged right lower quadrant mesenteric lymph nodes with slight irregular wall thickening of the terminal ileum possible infectious possible inflammatory terminal ileitis. Patient has no personal a familial history of inflammatory bowel disease. His whole life he has had chronic loose bowel movements 3-4 times a day. Overall thin appearance no weight loss. No changes in vision. New development of an erythematous type rash on his forearms and abdomen. No history of these type of symptoms. White count 6.1-7. Hemoglobin 13.5-14. ESR 6. C-reactive 40.5. Hepatitis screen nonreactive. Group A strep negative. Preliminary blood cultures no growth. No changes in diet no recent travels. Patient states his children were sick over the weekend with low-grade fevers. History of EGD or colonoscopy. Denies hematemesis hematochezia melena. Review of Systems Constitutional: Denies fever, chills, sweats, weight gain, or loss. HEENT: Negative for migraines, blurred vision or loss, earaches, drainage, tinnitus, oral mucosal lesions, dysphagia, or odynophagia. Cardiac: Negative for chest pain, arrhythmias, or palpitation. Respiratory: Negative for shortness of breath, hemoptysis, cough, or sputum production. Gastrointestinal: See HPI for pertinent findings. Genitourinary: Negative for hematuria, urgency, frequency, polyuria, dysuria, or penile discharge. Musculoskeletal: Negative for muscle aches, swelling, arthritis, and arthralgias. Neurologic: Negative for stroke or TIA. Endocrine: Negative for thyroid problems. Skin: Negative for rash or itching. Psychiatric: Negative history for depression and anxiety Past Medical History Past Medical History: Pneumonia Additional Past Medical History / Comment(s): Recent constipation with diarrhea 10/05/17 and prior to that solid stool 09/28/17, bacterial pneumonia 10 yrs ago History of Any Multi-Drug Resistant Organisms: None Reported Past Surgical History: No Surgical Hx Reported Additional Past Anesthesia/Blood Transfusion Reaction / Comm: Pt has never had anesthesia. Pt has never received blood. Past Psychological History: ADD/ADHD, Anxiety, PTSD Smoking Status: Current every day smoker Additional Past Alcohol Use History / Comment(s): Patient is a smoker of pack per day and started 2007. He lives at home with his and 2 children. 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 He has served in the [employer] in [employer]. - Past Family History Father Additional Family Medical History / Comment(s): Father committed suicide. Mother Family Medical History: Cancer Additional Family Medical History / Comment(s): Mother from metastatic breast cancer at the age of 49yrs. Medications and Allergies Home Medications Medication Instructions Recorded Confirmed Type Ciprofloxacin HCl [Cipro] 500 mg PO Q12HR 10 Days tab 10/06/17 10/07/17 Rx metroNIDAZOLE [Flagyl] 500 mg PO TID #30 tab 10/06/17 10/07/17 Rx Allergies Allergy/AdvReac Type Severity Reaction Status Date / Time No Known Allergies Allergy Verified 10/07/17 23:45 Physical Exam Vitals: Vital Signs Temp Pulse Resp BP BP Pulse Ox 10/09/17 07:00 96.3 F L 89 19 116/64 96 10/08/17 20:20 98.4 F 78 16 119/73 98 10/08/17 15:00 97.8 F 56 L 16 117/75 100 Intake and Output 10/08/17 10/09/17 10/09/17 22:59 06:59 14:59 Intake Total 600 Balance 600 Intake: Intake, IV Titration 600 Amount Sodium Chloride 0.9% 1, 600 000 ml @ 75 mls/hr IV . [id number] ONE Rx#:[id number] Other: Voiding Method Toilet # Voids 1 General appearance: The patient is alert, oriented, in no acute distress. HET: Head is normocephalic and atraumatic. Pupils are equal and reactive. Oropharynx is clear without lesions. Neck: Supple without lymphadenopathy. Trachea midline. Heart: S1 S2. Regular rate and rhythm. Lungs: No crackles or wheezes are heard. Abdomen: Soft, mild tenderness to the right lower quadrant, nondistended with bowel sounds. No peritoneal signs. No palpable organomegaly or masses. Extremities: Erythematous skin to the bilateral forearms right side of abdomen pinpoint nonpruritic rash. Normal skin color and turgor. Radial and pedal pulses are 2/4 bilaterally. Neurological: No focal deficits. Strength and sensation are grossly intact. Results CBC & Chem 7: 10/09/17 07:29 10/09/17 07:29 Labs: Abnormal Lab Results - Last 24 Hours (Table) 10/08/17 Range/Units 14:25 C-Reactive Protein 40.5 H (<10.0) mg/L Microbiology - Last 24 Hours (Table) 10/07/17 22:49 Blood Culture - Preliminary Blood No Growth after [address] scan - abdomen: report reviewed (Dr. Kat) Assessment and Plan (1) Ileitis Narrative/Plan: 26-year-old male admitted with a five-day history of fever right lower quadrant abdominal pain atypical rash as well as CT imaging supporting findings of terminal ileitis possible self limiting infectious possible inflammatory. Current Visit: Yes Status: Acute Code(s): K52.9 - NONINFECTIVE GASTROENTERITIS AND COLITIS, UNSPECIFIED SNOMED Code(s): 82161521 (2) Abdominal pain Current Visit: Yes Status: Acute Code(s): R10.9 - UNSPECIFIED ABDOMINAL PAIN SNOMED Code(s): 14417962 (3) Fever of unknown origin Current Visit: Yes Status: Acute Code(s): R50.9 - FEVER, UNSPECIFIED SNOMED Code(s): 2227139 Plan: 1. EGD colonoscopy advised scheduled for tomorrow. 2. P-ANCA pending. Sed rate CRP reviewed. Patient was started on twice daily low-dose steroids by primary service. The scheduling representative has discussed the risks, benefits and alternative therapies for the above-mentioned procedure and for both sedation/analgesia as well as necessary blood product administration, if indicated, as they pertain to this patient. The patient has indicated understanding and acceptance of the risks and procedures discussed. Thank you for this kind referral and the opportunity to participate in the care of your patient. This consultation was discussed with Dr. Kat. The impression and plan of care have been directed as dictated.
--- NOTE | 2017-10-09 11:25 | P.PN ---
Subjective 21-year-old gentleman admitted for abdominal pain found to have terminal ileitis , mostly inflammatory infectious etiology cannot be ruled out patient of fever patient has some lymphadenopathy inguinal and axillary. Patient does have some lipomas as well. Patient will undergo upper GI endoscopy and lower GI endoscopy and biopsy as a part of evaluation for Crohn's disease. Patient was started on steroids abdominal pain did improve and his pain intensity has come down. Patient is on 20 mg twice a day of prednisone. Constitutional: Denied any fatigue denied any fever. Cardio vascular: denied any chest pain, palpitations Gastrointestinal as mentioned in HPI Pulmonary: Denied any shortness of breath cough Neurologic denied any new focal deficits Objective - Vital Signs Vital signs: Vital Signs Temp 96.3 F L 10/09/17 07:00 Pulse 89 10/09/17 07:45 Resp 19 10/09/17 07:45 BP 116/64 10/09/17 07:00 Pulse Ox 96 10/09/17 07:00 Intake & Output 10/08/17 10/09/17 10/09/17 18:59 06:59 18:59 Intake Total 650 600 Balance 650 600 Weight 63.503 kg Intake: Intake, IV Titration 650 600 Amount Piperacillin-Tazobactam 3 50 .375 gm In Dextrose/Water 1 50ml.bag @ 12.5 mls/hr IVPB Q8HR [facility] Rx#: [id number] Sodium Chloride 0.9% 1, 600 600 000 ml @ 75 mls/hr IV . [id number] ONE Rx#:[id number] Other: Voiding Method Toilet Toilet Toilet # Voids 1 - Exam PHYSICAL EXAMINATION: GENERAL: The patient is alert and oriented x3, not in any acute distress. Well developed, well nourished. HEENT: Pupils are round and equally reacting to light. EOMI. No scleral icterus. No conjunctival pallor. Normocephalic, atraumatic. No pharyngeal erythema. No thyromegaly. CARDIOVASCULAR: S1 and S2 present. No murmurs, rubs, or gallops. PULMONARY: Chest is clear to auscultation, no wheezing or crackles. ABDOMEN: Soft, nontender, nondistended, normoactive bowel sounds. No palpable organomegaly. MUSCULOSKELETAL: No joint swelling or deformity. EXTREMITIES: No cyanosis, clubbing, or pedal edema. Right inguinal lymphadenopathy and left axillary lymphadenopathy as mentioned above and multiple lipomas. NEUROLOGICAL: Gross neurological examination did not reveal any focal deficits. SKIN: No rashes. - Labs CBC & Chem 7: 10/09/17 07:29 10/09/17 07:29 Labs: Abnormal Lab Results - Last 24 Hours (Table) 10/08/17 Range/Units 14:25 C-Reactive Protein 40.5 H (<10.0) mg/L Microbiology - Last 24 Hours (Table) 10/07/17 22:49 Blood Culture - Preliminary Blood No Growth after 24 hours Assessment and Plan Plan: -Abdominal pain secondary to colitis concerning for Crohn's ileitis no family history of inflammatory bowel disease, patient is presently on prednisone twice a day patient will undergo upper and lower GI endoscopy patient is also on Zosyn. - systemic inflammatory response syndrome: Secondary to Crohn's colitis most probably -Anxiety disorder -Nicotine use: Counseling was provided
--- NOTE | 2017-10-09 12:27 | P.PN ---
Subjective Progress Note Date: 10/09/17 Patient reports abdominal pain is better. He has been seen by GI and is being evaluated for Crohns. Objective - Vital Signs Vital signs: Vital Signs Temp 96.3 F L 10/09/17 07:00 Pulse 89 10/09/17 07:45 Resp 19 10/09/17 07:45 BP 116/64 10/09/17 07:00 Pulse Ox 96 10/09/17 07:00 Intake & Output 10/08/17 10/09/17 10/09/17 18:59 06:59 18:59 Intake Total 650 600 Balance 650 600 Weight 63.503 kg Intake: Intake, IV Titration 650 600 Amount Piperacillin-Tazobactam 3 50 .375 gm In Dextrose/Water 1 50ml.bag @ 12.5 mls/hr IVPB Q8HR [facility] Rx#: [id number] Sodium Chloride 0.9% 1, 600 600 000 ml @ 75 mls/hr IV . [id number] ONE Rx#:[id number] Other: Voiding Method Toilet Toilet Toilet # Voids 1 - Exam ABDOMEN: No peritonitis. Soft. Nondistended. GENERAL: Well developed and in no acute distress. Pleasant. HEENT: No sclera icterus. Extraocular movements grossly intact. Moist buccal mucosa. Head is atraumatic, normocephalic. Hears conversational speech. No nasal drainage. NECK: Supple without lymphadenopathy. No JV distention. CHEST: Non-labored respirations and equal bilateral excursions. CARDIOVASCULAR: Regular rate and rhythm. Palpable 2+ radial pulses. MUSCULOSKELETAL: No clubbing, cyanosis or edema. NEUROLOGIC: No focal or lateralizing signs. PSYCH: Appropriate affect. Alert and oriented to person, place and time. SKIN: Good skin turgor. Well perfused. - Labs CBC & Chem 7: 10/09/17 07:29 10/09/17 07:29 Labs: Abnormal Lab Results - Last 24 Hours (Table) 10/08/17 Range/Units 14:25 C-Reactive Protein 40.5 H (<10.0) mg/L Microbiology - Last 24 Hours (Table) 10/07/17 22:49 Blood Culture - Preliminary Blood No Growth after 24 hours Assessment and Plan (1) Abdominal pain Current Visit: Yes Status: Acute Code(s): R10.9 - UNSPECIFIED ABDOMINAL PAIN SNOMED Code(s): 24688352 (2) Ileitis Current Visit: Yes Status: Acute Code(s): K52.9 - NONINFECTIVE GASTROENTERITIS AND COLITIS, UNSPECIFIED SNOMED Code(s): 46858746 Plan: 1. No surgical intervention. 2. Management per GI team. 3. May benefit from colonoscopy. 4. Will follow as needed.
[2017-10-09] MEDS ORDERED: PEG 3350-NA SULF,BICARB,CL/KCL 4,000 ML BOTTLE PO ONE (15:00)
[2017-10-10] MEDS: PIPERACILLIN-TAZOBACTAM 3.375 GM in DEXTROSE/WATER 1 50ML.BAG IVPB SCH ×2 (00:44→07:26)
[2017-10-10] MEDS: predniSONE 20 MG TAB PO SCH (07:14)
[2017-10-10] MEDS ORDERED: IV FLUID CONTINUATION 1,000 ML IV ONE (12:29)
[2017-10-10] MEDS ORDERED: PROPOFOL 10 MG/ML 20 ML VIAL IV ONE (12:30)
[2017-10-10] MEDS ORDERED: LIDOCAINE 1% INJ 10MG/ML (20 ML MDV) ONE (12:30)
--- NOTE | 2017-10-10 12:46 | P.PCN ---
Date of Procedure: 10/10/17 Procedure(s) Performed: Brief history: Patient is a pleasant 36-year-old white male, admitted to the hospital with abdominal pain the right lower quadrant area for the last 1 week duration associated with some change in bowel habits. He came to the emergency room with low-grade fever and had a CT of the abdomen done that showed showed thickening of the terminal ileum suspicious for Crohn's ileitis and hence he is scheduled for an upper endoscopy as well as colonoscopy to evaluate further. Procedure performed: Esophagogastroduodenoscopy with biopsy Colonoscopy with biopsy Preoperative diagnosis: Anesthesia: MAC Procedure: After informed consent was obtained from the patient was brought into the endoscopy unit and IV sedation was administered by anesthesia under continuous monitoring. Initially upper endoscopy was done. The Olympus GF 160 video endoscope was inserted inserted into the mouth and esophagus intubated without any difficulty and was gradually advanced into the stomach and duodenum and carefully examined. The bulb and second part of the duodenum appeared normal. Sr. also done from this area. The scope was then withdrawn into the stomach adequately insufflated with air and upon careful examination the antrum had linear erosions consistent with gastritis and biopsies were done from this area. The body, cardia and fundus appeared normal. The scope was then withdrawn into the esophagus. The GE junction was located at 40 cm to the incisors. It appeared regular with no erythema erosions or ulcerations. Rest of the esophagus appeared normal. Patient tolerated the procedure well. At this time the patient continued to remain sedation. Initial digital rectal examination was normal. Olympus CF 160 video colonoscope was then inserted into the rectum and gradually advanced to the cecum without any difficulty. Careful examination was performed as the scope was gradually being withdrawn. The prep was excellent. Elaine was intubated and 20 cm visualized and appeared entirely normal. Multiple biopsies were done from the terminal ileum. The cecum, ascending colon, transverse colon, descending colon, sigmoid colon and rectum appeared normal. Retroflexion was performed in the rectum and no lesions were noted. Patient tolerated the procedure well. Impression: 1. Upper endoscopy revealed antral erosive gastritis but no evidence of peptic ulcer disease 2. Colonoscopy revealed normal-appearing colon from rectum to cecum as well as terminal ileum with no evidence of inflammatory bowel disease. Recommendations: Findings of this examination were discussed with the patient as well as his family. He was advised to follow with the biopsy results. He will continue with antibiotics and he can be discharged home today with outpatient follow-up in 2 weeks
[2017-10-10 13:56] LABS: C-ANCA <1:20 Titer (<1:20); P-ANCA <1:20 Titer (<1:20)
[2017-10-10 15:36] VITALS: BP 122/70; PULSE 90; RESP 18; TEMP 99.6
--- NOTE | 2017-10-11 18:55 | P.DS ---
Providers Date of admission: 10/08/17 01:22 Expected date of discharge: 10/10/17 Attending physician: Sejal Gorman Consults: 10/08/17 01:22 Consult Physician Urgent Consulting Provider: Ethan Mckee Consult Reason/Comments: Fever of unknown origin Do you want consulting provider notified?: Yes Consult Physician Urgent Consulting Provider: Kyra Dyer Consult Reason/Comments: Abdominal pain Do you want consulting provider notified?: Yes 10/08/17 15:26 Consult Physician Routine Consulting Provider: Christie Kat Consult Reason/Comments: Possible crohn's ileitis Do you want consulting provider notified?: Yes Primary care physician: Stated None [facility] Course: Final Diagnoses: -Abdominal pain secondary to antral erosive gastritis, no peptic ulcer disease, no inflammatory bowel disease; status post EGD colonoscopy. -Anxiety disorder -Nicotine use: Counseling was provided Hospital course:21-year-old gentleman admitted for abdominal pain found to have possible terminal ileitis, mostly inflammatory infectious etiology cannot be ruled out patient of fever patient has some lymphadenopathy inguinal and axillary. Patient does have some lipomas as well. Patient will undergo upper GI endoscopy and lower GI endoscopy and biopsy as a part of evaluation for Crohn 's disease. Patient was started on steroids abdominal pain did improve and his pain intensity has come down. Patient is on 20 mg twice a day of prednisone. Evaluated by infectious disease, surgery, GI. Underwent EGD and colonoscopy. EGD revealed antral erosive gastritis with no evidence of peptic ulcer disease. Colonoscopy reported normal appearing colon from rectum to cecum as well as terminal ileum with no evidence of inflammatory bowel disease. Cleared by consults for discharge. Biopsy results pending. EXAM: GENERAL: The patient is alert and oriented x3, not in any acute distress. CARDIOVASCULAR: S1 and S2 present. No murmurs, rubs, or gallops. PULMONARY: Chest is clear to auscultation, no wheezing or crackles. ABDOMEN: Soft, nontender, nondistended, normoactive bowel sounds. No palpable organomegaly. NEUROLOGICAL: Gross neurological examination did not reveal any focal deficits. Microbiology 10/07/17 22:49 Blood Blood Culture - Preliminary No Growth after 72 hours The impression and plan of care has been dictated as directed. : I performed a history and examination of this patient, discussed the same with the dictator. I agree with the dictator's note ,documented as a scribe. Any additional findings or plans will be noted. Time taken: 35 minutes Patient Condition at Discharge: Stable Plan - Discharge Summary Discharge Rx Participant: No New Discharge Prescriptions: New Omeprazole [PriLOSEC] 40 mg PO AC-BRKFST #14 capsule. Discontinued Ciprofloxacin HCl [Cipro] 500 mg PO Q12HR 10 Days tab metroNIDAZOLE [Flagyl] 500 mg PO TID #30 tab Discharge Medication List Omeprazole [PriLOSEC] 40 mg PO AC-BRKFST #14 capsule. 10/10/17 [Rx] Follow up Appointment(s)/Referral(s): Jack Alaniz MD [STAFF PHYSICIAN] - 10/28/17 4:30 pm Krunal Martinez DO [Doctor of Osteopathic Medicine] - 3 Days (Patient will need to call Dr. Martinez's office to schedule follow up appointment. The office has queestion sregarding new patient information.) Patient Instructions/Handouts: Omeprazole (By mouth), Acute Abdominal Pain (DC) Activity/Diet/Wound Care/Special Instructions: antibx as per ID Discharge Disposition: HOME SELF-CARE
== END 2017-10-10 15:55 | disposition home or self-care (01) ==
LOC: EC 22:04 → 3SUR 10-08 01:22 → 5MS5E 10-08 13:29
PROVIDERS: ADMIT Hospitalist; ATTEND Hospitalist
DX: K29.60 Other gastritis without bleeding (principal); K52.9 Noninfective gastroenteritis and colitis, unspecified; R59.0 Localized enlarged lymph nodes; L53.9 Erythematous condition, unspecified; R11.10 Vomiting, unspecified; T37.3X5A Adverse effect of other antiprotozoal drugs, initial encounter; F41.9 Anxiety disorder, unspecified; K59.00 Constipation, unspecified; F90.9 Attention-deficit hyperactivity disorder, unspecified type; F43.10 Post-traumatic stress disorder, unspecified; F17.210 Nicotine dependence, cigarettes, uncomplicated; Z87.01 Personal history of pneumonia (recurrent); Z81.8 Family history of other mental and behavioral disorders; Z80.3 Family history of malignant neoplasm of breast
CPT/HCPCS: 99285 ×2; 96365 ×2; 96366 ×15; 96375; 36415; 86255; 87496; 87498; 87529; 87798; 88305; 80053; 80048; 80074; 85652; 82150; 83605; 83690; 85025; 85027; 86140; 81001; 87040; 87252; 74018; 76705; 74177; 45378; 43239; G0378 ×4; J2001; J1885; J2543 ×3; J2704; J7512 ×2; Q9967

== ENCOUNTER 2017-10-18 04:39 | Emergency (ER) | payer BC ==
[2017-10-18 04:46] VITALS: BP 122/76; PULSE 86; RESP 18; TEMP 97.7
--- NOTE | 2017-10-18 05:10 | ED ---
General Adult HPI - General Chief complaint: Urogenital Stated complaint: Male Source: patient Mode of arrival: ambulatory Limitations: no limitations - History of Present Illness Initial comments: Dictation was produced using [employer] dictation software. please excuse any grammatical, word or spelling errors. Chief Complaint: 26-year-old male presents with right testicular pain History of Present Illness: 26-year-old male presents with right testicular pain. On Saturday he was diagnosed with epididymitis. He was in [facility] where he was seen at [facility]. He had a scrotal ultrasound was performed demonstrating epididymitis. He was also evaluated by urologist there. Patient denies any constitutional symptoms. Patient reports that the swelling of his testicle has been improving. Overall patient reports that he is improving however he did have one episode where he had some testicular pain. Patient is on ciprofloxacin. He does have good follow-up with his private care physician. He was negative for STI. The ROS documented in this emergency department record has been reviewed and confirmed by me. Those systems with pertinent positive or negative responses have been documented in the HPI. All other systems are other negative and/or noncontributory. - Related Data Previous Rx's Medication Instructions Recorded Omeprazole [PriLOSEC] 40 mg PO AC-BRKFST #14 capsule. 10/10/17 HYDROcodone/APAP 5-325MG [[place] 1 tab PO Q6HR PRN 3 Days #12 tab 10/18/17 5-325] Allergies Allergy/AdvReac Type Severity Reaction Status Date / Time No Known Allergies Allergy Verified 10/18/17 04:46 Review of Systems ROS Statement: Those systems with pertinent positive or pertinent negative responses have been documented in the HPI. ROS Other: All systems not noted in ROS Statement are negative. Past Medical History Past Medical History: Pneumonia Additional Past Medical History / Comment(s): Recent constipation with diarrhea 10/05/17 and prior to that solid stool 09/28/17, bacterial pneumonia 10 yrs ago History of Any Multi-Drug Resistant Organisms: None Reported Past Surgical History: No Surgical Hx Reported Additional Past Anesthesia/Blood Transfusion Reaction / Comment(s): Pt has never had anesthesia. Pt has never received blood. Past Psychological History: ADD/ADHD, Anxiety, PTSD Smoking Status: Current every day smoker Past Alcohol Use History: None Reported Past Drug Use History: None Reported - Past Family History Father Additional Family Medical History / Comment(s): Father committed suicide. Mother Family Medical History: Cancer Additional Family Medical History / Comment(s): Mother from metastatic breast cancer at the age of 49yrs. General Exam - General Exam Comments Initial Comments: PHYSICAL EXAM: General Impression: Alert and oriented x3, not in acute distress HEENT: Normocephalic atraumatic, extra-ocular movements intact, pupils equal and reactive to light bilaterally, mucous membranes moist. Cardiovascular: Heart regular rate and rhythm, S1&S2 audible, no murmurs, rubs or gallops Chest: Lungs clear to auscultation bilaterally, no rhonchi, no wheeze, no rales Abdomen: Bowel sounds present, abdomen soft, non-tender, non-distended, no organomegaly Musculoskeletal: Pulses present and equal in all extremities, no peripheral edema Motor: Power 5/5 bilaterally, no focal deficits noted Neurological: CN II-XII grossly intact, no focal motor or sensory deficits noted Skin: Intact with no visualized rashes Psych: Normal affect and mood : Tenderness to the superior pole of the right testicle, no significant swelling. Mild erythema to the right testicle Limitations: no limitations Course Vital Signs 10/18/17 04:43 Temperature 97.7 F Pulse Rate 86 Respiratory 18 Rate Blood Pressure 122/76 O2 Sat by Pulse 100 Oximetry Medical Decision Making - Medical Decision Making ED course: 26-year-old male who presents with right testicular pain after diagnosis of epididymitis. Upon arrival are within normal limits. Physical examination is benign. Patient reports overall improvement of symptoms. No clinical suspicion of torsion. Negative Prehn sign. He does have good follow-up. Patient given prescription for [place] to take for severe pain. He is told to not operate machinery or drive after taking this medication. Patient told to follow-up with his PCP for follow-up of his urine culture and reevaluation of symptoms. Patient is understandable and agreeable to plan. Disposition Clinical Impression: Testicular pain, right Disposition: HOME SELF-CARE Instructions: Non-pharmacological Pain Management Therapies for Adults (ED) Prescriptions: HYDROcodone/APAP 5-325MG [[place] 5-325] 1 tab PO Q6HR PRN 3 Days #12 tab PRN Reason: Pain Is patient prescribed a controlled substance at d/c from ED?: No Referrals: Krunal Martinez DO [Primary Care Provider] - 1-2 days Time of Disposition: 05:10
== END 2017-10-18 05:17 | disposition home or self-care (01) ==
LOC: EC 04:39
DX: N50.811 Right testicular pain (principal); N50.89 Other specified disorders of the male genital organs; F17.200 Nicotine dependence, unspecified, uncomplicated
CPT/HCPCS: 99283

== ENCOUNTER 2017-10-19 22:36 | Emergency (ER) | payer BC ==
[2017-10-19 22:41] VITALS: RESP 18; TEMP 98.3
[2017-10-19] MEDS ORDERED: SODIUM CHLORIDE 0.9% 500 ML IV STA (23:08)
[2017-10-19] MEDS ORDERED: HYDROcodone/APAP 5-325MG 1 EACH TAB PO STA (23:08)
[2017-10-19] MEDS ORDERED: KETOROLAC 30 MG/ML 1 ML VIAL IVP STA (23:08)
--- NOTE | 2017-10-20 00:05 | ED ---
Male Urogenital HPI - General Chief complaint: Urogenital Stated complaint: Male Time Seen by Provider: 10/19/17 22:51 Source: patient Mode of arrival: ambulatory Limitations: no limitations - History of Present Illness Initial comments: Patient is a 26-year-old male presenting for scrotal pain.patient states that last Saturday, he was seen at [facility] where an ultrasound was performed and he was told that he had hydrocele and varicocele as well as epididymitis. He also states that he was tested for chlamydia and gonorrhea both of which were negative. He was giving ciprofloxacin and had been improving. However, on Saturday morning, he said had sudden onset testicular pain which was improved by ice but every time he took the eye soft, the pain got worse. He denies any nausea/vomiting but states that he has had more difficult time urinating. - Related Data Home Medications Medication Instructions Recorded Confirmed Ciprofloxacin HCl [Cipro] 500 mg PO BID 10/19/17 10/19/17 Previous Rx's Medication Instructions Recorded Omeprazole [PriLOSEC] 40 mg PO [place] #14 capsule. 10/10/17 HYDROcodone/APAP 5-325MG [[place] 1 tab PO Q6HR PRN 3 Days #12 tab 10/18/17 5-325] HYDROcodone/APAP 10-325MG [[place] 1 tab PO Q6HR PRN 3 Days #12 tab 10/20/17 10-325] Ibuprofen [Motrin] 600 mg PO Q6HR PRN #20 tab 10/20/17 Allergies Allergy/AdvReac Type Severity Reaction Status Date / Time No Known Allergies Allergy Verified 10/19/17 22:38 Review of Systems ROS Statement: Those systems with pertinent positive or pertinent negative responses have been documented in the HPI. Constitutional: Negative for chills, fatigue and fever. HENT: Negative for congestion. Respiratory: Negative for chest tightness, shortness of breath and wheezing. Negative for cough Cardiovascular: Negative for chest pain and palpitations. Gastrointestinal: Negative for abdominal pain. Negative for abdominal distention , diarrhea, nausea and vomiting. Genitourinary: Negative for dysuria.positive for difficulty urinating and testicular pain Musculoskeletal: Negative for back pain, neck pain and neck stiffness. Skin: Negative for color change. Neurological: Negative for dizziness, speech difficulty, weakness and light- headedness. Psychiatric/Behavioral: Negative for agitation and confusion. Negative for anxiety ROS Other: All systems not noted in ROS Statement are negative. Past Medical History Past Medical History: Pneumonia Additional Past Medical History / Comment(s): Recent constipation with diarrhea 10/05/17 and prior to that solid stool 09/28/17, bacterial pneumonia 10 yrs ago History of Any Multi-Drug Resistant Organisms: None Reported Past Surgical History: No Surgical Hx Reported Additional Past Anesthesia/Blood Transfusion Reaction / Comment(s): Pt has never had anesthesia. Pt has never received blood. Past Psychological History: ADD/ADHD, Anxiety, PTSD Smoking Status: Current every day smoker Past Alcohol Use History: None Reported Past Drug Use History: None Reported - Past Family History Father Additional Family Medical History / Comment(s): Father committed suicide. Mother Family Medical History: Cancer Additional Family Medical History / Comment(s): Mother from metastatic breast cancer at the age of 49yrs. General Exam - General Exam Comments Initial Comments: Constitutional: Pt is oriented to person, place, and time. Pt appears well- developed and well-nourished. No distress. HENT: Head: Normocephalic and atraumatic. Eyes: EOM are normal. Neck: Normal range of motion. Neck supple. Cardiovascular: Normal rate, regular rhythm, S1 normal, S2 normal and normal heart sounds. Exam reveals no gallop and no friction rub. No murmur heard. Pulmonary/Chest: Effort normal and breath sounds normal. No tachypnea and no bradypnea. No respiratory distress. No wheezes or rales noted. Abdominal: Soft. Bowel sounds are normal. Pt exhibits no shifting dullness, no distension, no pulsatile liver, no fluid wave, no abdominal bruit and no ascites. There is no tenderness. There is no rigidity, no rebound, no guarding, no tenderness at McBurney's point and negative Cifuentes's sign. Musculoskeletal: Normal range of motion. : bilateral normal testicular lie. Tenderness to the right epididymal head. No tenderness to the left testing. No evidence of penile lesions or discharge. Positive cremasteric reflex Neurological: Pt is alert and oriented to person, place, and time. No cranial nerve deficit. Skin: Skin is warm and dry. No rash noted. Pt is not diaphoretic. No erythema. No pallor. Psychiatric: Pt has a normal mood and affect. Pt behavior is normal. Thought content normal. Limitations: no limitations Course Vital Signs 10/19/17 22:39 Temperature 98.3 F Pulse Rate 99 Respiratory 18 Rate Blood Pressure 119/76 O2 Sat by Pulse 100 Oximetry Medical Decision Making - Medical Decision Making Laboratory studies showed that there was no significant leukocytosis and urinalysis was negative for infection. Additionally, patient already had testing of gonorrhea and chlamydia at outside facility but this is rechecked in pending but I suspected to be the cause of the pain. Ultrasound of the scrotum was performed to evaluate for testicular torsion and arterial blood flow to both testes is visualized. There is also no evidence of hydrocele or varicocele but there were masslike structures in the right testicle. Because of the patient's tenderness to palpation, case is discussed with urology plant production manager , Dr. Olmos, and it was advised that this could possibly be secondary to spermatocele and outpatient follow-up was appropriate in that NSAIDs were recommended. This is advised to the patient who is agreeable to plan. He also states that after the last visit of [facility], he was recommended to set up an appointment with a urologist but had not done so. - Lab Data Result diagrams: 10/19/17 23:48 10/19/17 23:48 Lab Results 10/19/17 10/19/17 10/19/17 Range/Units 23:48 23:48 23:48 WBC 12.1 H (3.8-10.6) k/uL RBC 4.51 (4.30-5.90) m/uL Hgb 13.2 (13.0-17.5) gm/dL Hct 39.2 (39.0-53.0) % MCV 86.9 (80.0-100.0) fL MCH 29.3 (25.0-35.0) pg MCHC 33.7 (31.0-37.0) g/dL RDW 12.9 (11.5-15.5) % Plt Count 353 (150-450) k/uL Neutrophils % 83 % Lymphocytes % 10 % Monocytes % 6 % Eosinophils % 1 % Basophils % 0 % Neutrophils # 10.0 H (1.3-7.7) k/uL Lymphocytes # 1.2 (1.0-4.8) k/uL Monocytes # 0.7 (0-1.0) k/uL Eosinophils # 0.1 (0-0.7) k/uL Basophils # 0.0 (0-0.2) k/uL Sodium 139 (137-145) mmol/L Potassium 4.6 (3.5-5.1) mmol/L Chloride 102 (98-107) mmol/L Carbon Dioxide 27 (22-30) mmol/L Anion Gap 10 mmol/L BUN 17 (9-20) mg/dL Creatinine 0.80 (0.66-1.25) mg/dL Est GFR (CKD-EPI)AfAm >90 (>60 ml/min/1.73 sqM) Est GFR (CKD-EPI)NonAf >90 (>60 ml/min/1.73 sqM) Glucose 79 (74-99) mg/dL Calcium 9.4 (8.4-10.2) mg/dL Urine Color Yellow Urine Appearance Clear (Clear) Urine pH 6.5 (5.0-8.0) Ur Specific Muse 1.018 (1.001-1.035) Urine Protein Negative (Negative) Urine Glucose (UA) Negative (Negative) Urine Ketones Negative (Negative) Urine Blood Negative (Negative) Urine Nitrite Negative (Negative) Urine Bilirubin Negative (Negative) Urine Urobilinogen <2.0 (<2.0) mg/dL Ur Leukocyte Esterase Negative (Negative) Disposition Clinical Impression: Mass of right testicle, Testicle pain Disposition: HOME SELF-CARE Condition: Good Instructions: Testicle Pain (ED) Prescriptions: HYDROcodone/APAP 10-325MG [[place] 10-325] 1 tab PO Q6HR PRN 3 Days #12 tab PRN Reason: Pain Ibuprofen [Motrin] 600 mg PO Q6HR PRN #20 tab PRN Reason: Pain Is patient prescribed a controlled substance at d/c from ED?: Yes When asked, does pt state using other controlled substances?: No If prescribed controlled substance>3 days was MAPS reviewed?: Prescribed <3 Days If opioid is for acute pain is fill amount 7 days or less?: Yes If Rx opioid, was Start Talking consent form obtained?: Yes Referrals: Krunal Martinez DO [Primary Care Provider] - 1-2 days Suresh Olmos MD [STAFF PHYSICIAN] - 1-2 days
[2017-10-20 00:19] LABS: Anion Gap 10 mmol/L; Blood Urea Nitrogen 17 mg/dL (9-20); Calcium 9.4 mg/dL (8.4-10.2); Carbon Dioxide 27 mmol/L (22-30); Chloride 102 mmol/L (98-107); Glucose 79 mg/dL (74-99); Potassium 4.6 mmol/L (3.5-5.1); Sodium 139 mmol/L (137-145)
--- NOTE | 2017-10-20 00:27 | US ---
EXAMINATION TYPE: US scrotum with doppler. Grayscale and color Doppler Duplex imaging performed of t he scrotum. DATE OF EXAM: 10/20/2017 COMPARISON: NONE CLINICAL HISTORY: Diagnosed with epididymitis but has worsening pain. Pt states recent diagnosis of e pididymitis right side at outside facility/ Increased pain right testicle EXAM MEASUREMENTS: TESTICLES: Right Testicle: 4.3 x 2.5 x 4.3 cm Left Testicle: 4.6 x 2.1 x 3.1 cm EPIDIDYMIS HEAD: Right Epididymis: 1.0 cm Left Epididymis: 0.8 cm Doppler performed to assess for testicular vascularity; good bilateral color flow and waveforms are s een. There is no evidence of testicular torsion. Presence of hydroceles: No Presence of varicoceles: No Grossly heterogeneous right testicle with "mass-like" features in two areas 1)= 2.2 x 1.9 cm and 2) = 1.6 x 0.9 cm Bilateral epididymis appeared wnl IMPRESSION: There is avascular complex hypoechoic area in the lower pole of the right testicle. This could relate to trauma and hematoma. Tumor or abscess or infarct are in the differential diagnosis. F ollow-up is recommended. There is no evidence of testicular torsion. Follow-up is recommended.
[2017-10-20 00:30] LABS: Appearance,Urine Clear (Clear); Bilirubin,Urine Negative (Negative); Blood,Urine Negative (Negative); Color,Urine Yellow; Glucose,Urine (UA) Negative (Negative); Ketones,Urine Negative (Negative); Leukocyte Esterase,Urine Negative (Negative); Nitrite,Urine Negative (Negative); PH, Urine 6.5 (5.0-8.0); Protein,Urine Negative (Negative); Specific Gravity,Urine 1.018 (1.001-1.035); Urobilinogen,Urine <2.0 mg/dL (<2.0)
[2017-10-20 00:31] LABS: Basophils % (A) 0 %; Eosinophils # (A) 0.1 k/uL (0-0.7); Eosinophils % (A) 1 %; HCT 39.2 % (39.0-53.0); HGB 13.2 gm/dL (13.0-17.5); Lymphocytes # (A) 1.2 k/uL (1.0-4.8); Lymphocytes % (A) 10 %; MCH 29.3 pg (25.0-35.0); MCHC 33.7 g/dL (31.0-37.0); MCV 86.9 fL (80.0-100.0); Mean Platelet Volume 7.5; Monocytes # (A) 0.7 k/uL (0-1.0); Monocytes % (A) 6 %; Neutrophils % (A) 83 %; Platelet Count 353 k/uL (150-450); RBC 4.51 m/uL (4.30-5.90); RDW 12.9 % (11.5-15.5); WBC 12.1 k/uL (3.8-10.6)
[2017-10-20 01:24] VITALS: BP 118/56; PULSE 70
[2017-10-21 13:31] LABS: C. trachomatis,PCR Negative (Neg,Equiv); Chlamydia trachomatis Source Urine; N. gonorrhoeae,PCR Negative (Neg,Equiv); Neisseria Source Urine
== END 2017-10-20 01:45 | disposition home or self-care (01) ==
LOC: EC 22:36
DX: N50.819 Testicular pain, unspecified (principal); R22.9 Localized swelling, mass and lump, unspecified; F90.9 Attention-deficit hyperactivity disorder, unspecified type; F41.9 Anxiety disorder, unspecified; F43.10 Post-traumatic stress disorder, unspecified; F17.200 Nicotine dependence, unspecified, uncomplicated
CPT/HCPCS: 36415; 80048; 85025; 81003; 87491; 87591; 93975; 76870; 99284; 96374; 96361 ×2; J1885

== ENCOUNTER → 2017-11-26 | Outpatient (CLI) | payer BC ==
--- NOTE | 2017-11-26 14:28 | US ---
EXAMINATION TYPE: US scrotum with doppler. Grayscale and color Doppler Duplex imaging performed of t kayli scrotum. DATE OF EXAM: 11/26/2017 COMPARISON: US 09/2017 CLINICAL HISTORY: N50.9 Testicular Mass. Followup US after actibiotics EXAM MEASUREMENTS: TESTICLES: Right Testicle: 4.7 x 2.2 x 2.0 cm Left Testicle: 4.9 x 2.7 x 2.5 cm EPIDIDYMIS HEAD: Right Epididymis: 0.8 x 0.9 x 0.7 cm Left Epididymis: 1.0 x 0.7 x 1.0 cm Doppler performed to assess for testicular vascularity; good bilateral color flow and waveforms are s een. There is no evidence of testicular torsion. Presence of hydroceles: no Presence of varicoceles: no Heterogeneous appearance is noted to right testicle compared to left testicle. IMPRESSION: 1. Slight asymmetry of the heterogeneity within the right testicle compared to left. Previous hypoden se collection within the right testicle is no longer identified. Findings are improving
== END | disposition home or self-care (01) ==
LOC: RADUSWWP 08:05
PROVIDERS: ATTEND Urology
DX: N50.89 Other specified disorders of the male genital organs (principal)
CPT/HCPCS: 76870; 93975

== ENCOUNTER → 2020-04-08 | Outpatient (CLI) | payer BC ==
--- NOTE | 2020-04-08 13:24 | XR ---
EXAMINATION TYPE: XR lumbosacral spine min 4V DATE OF EXAM: 04/08/2020 CLINICAL HISTORY: Low back pain. Pain with radiculopathy after strain injury one week ago. TECHNIQUE: Frontal, lateral, and oblique images of the lumbar spine are obtained. COMPARISON: CT abdomen and pelvis October 08, 2017 FINDINGS: There are 6 lumbar type vertebral bodies redemonstrated. The lumbar spine redemonstrates satisfactory alignment without evidence of acute fracture or dislocation. Persistent mild disc space narrowing L6-S1 level of the right vertebral body heights and disk space heights remain within mike l limits. The oblique images appear within normal limits. The overlying soft tissue appears unrema rkable. IMPRESSION: As above.
== END | disposition home or self-care (01) ==
LOC: RADXRYALE 13:02
PROVIDERS: ATTEND Physician Assistant Medical
DX: M48.07 Spinal stenosis, lumbosacral region (principal)
CPT/HCPCS: 72110

== ENCOUNTER → 2020-04-18 | Outpatient (CLI) | payer BC ==
--- NOTE | 2020-04-19 02:23 | CT ---
EXAMINATION TYPE: CT lumbar spine wo con DATE OF EXAM: 04/18/2020 COMPARISON: CT abdomen 10/08/2017 HISTORY: low back pain following heavy lifting CT DLP: 386.2 mGycm Automated exposure control for dose reduction was used. The lumbar vertebra have normal spacing and alignment. Posterior elements are intact. There is no lum bar paraspinal mass. There are numerous calcified splenic granulomata. Facet joints appear normal. T here is developmentally adequate spinal canal. I see no sign of spinal stenosis. The lumbar neural fo ramina appear fairly well-maintained. The sacroiliac joints appear intact. IMPRESSION: Negative CT scan of the lumbar spine. No change compared to old exam.
== END | disposition home or self-care (01) ==
LOC: RADCTMAIN 18:29
PROVIDERS: ATTEND Physician Assistant Medical
DX: M54.42 Lumbago with sciatica, left side (principal)
CPT/HCPCS: 72131

== ENCOUNTER 2020-10-25 09:54 | Emergency (ER) | payer BC, OTHER ==
[2020-10-25 10:00] VITALS: RESP 18; TEMP 97.7
[2020-10-25] MEDS ORDERED: HYDROmorphone 1 MG/ML 1 ML SYRINGE IM STA (10:17)
[2020-10-25] MEDS ORDERED: KETOROLAC 15 MG/ML 1 ML VIAL IM STA (10:17)
--- NOTE | 2020-10-25 10:19 | ED ---
General Adult HPI - General Chief complaint: Back Pain/Injury Stated complaint: [facility] Back injury Time Seen by Provider: 10/25/20 10:05 Source: patient, RN notes reviewed Mode of arrival: wheelchair Limitations: no limitations - History of Present Illness Initial comments: Patient is a pleasant 29-year-old male presenting to the emergency department with complaints of lower back pain. Onset of symptoms was fairly sudden around an hour and a half ago. Patient was lifting heavy objects/4 joints at work. Following this patient was leaning over working on the level. Patient had sudden discomfort of his lower back. There is some radiation towards both his legs. Discomfort does increase greatly with any movement. No loss of control of bowel or bladder. No weakness. No loss of sensation. No history of chronic back problems. - Related Data Home Medications Medication Instructions Recorded Confirmed No Known Home Medications 10/25/20 10/25/20 Allergies Allergy/AdvReac Type Severity Reaction Status Date / Time No Known Allergies Allergy Verified 10/25/20 10:53 Review of Systems ROS Statement: Those systems with pertinent positive or pertinent negative responses have been documented in the HPI. ROS Other: All systems not noted in ROS Statement are negative. Constitutional: Denies: fever Eyes: Denies: eye pain ENT: Denies: ear pain Respiratory: Denies: cough Cardiovascular: Denies: chest pain Endocrine: Denies: fatigue Gastrointestinal: Denies: abdominal pain Genitourinary: Denies: dysuria Musculoskeletal: Reports: as per HPI, back pain Skin: Denies: rash Neurological: Denies: weakness Past Medical History Past Medical History: Pneumonia Additional Past Medical History / Comment(s): Recent constipation with diarrhea 10/05/17 and prior to that solid stool 09/28/17, bacterial pneumonia 10 yrs ago History of Any Multi-Drug Resistant Organisms: None Reported Past Surgical History: No Surgical Hx Reported Additional Past Anesthesia/Blood Transfusion Reaction / Comment(s): Pt has never had anesthesia. Pt has never received blood. Past Psychological History: ADD/ADHD, Anxiety, PTSD Smoking Status: Current every day smoker Past Alcohol Use History: None Reported Past Drug Use History: Marijuana - Past Family History Father Additional Family Medical History / Comment(s): Father committed suicide. Mother Family Medical History: Cancer Additional Family Medical History / Comment(s): Mother from metastatic breast cancer at the age of 49yrs. General Exam Limitations: no limitations General appearance: alert, in no apparent distress Head exam: Present: atraumatic Eye exam: Present: normal appearance Neck exam: Present: normal inspection Respiratory exam: Present: normal lung sounds bilaterally Cardiovascular Exam: Present: regular rate, normal rhythm Expanded Peripheral pulses: 2+: Dorsalis Pedis (R), Dorsalis Pedis (L) GI/Abdominal exam: Present: soft. Absent: tenderness Extremities exam: Present: normal inspection. Absent: pedal edema, calf tenderness Back exam: Present: vertebral tenderness (Mild tenderness lower lumbar spine) Neurological exam: Present: alert. Absent: motor sensory deficit Expanded Sensory exam: Lower Extremity Light Touch: Normal Motor strength exam: RLE: 5, LLE: 5 Psychiatric exam: Present: normal affect, normal mood Skin exam: Present: normal color Course Vital Signs 10/25/20 10/25/20 09:56 11:00 Temperature 97.7 F Pulse Rate 96 Respiratory 18 18 Rate Blood Pressure 135/86 O2 Sat by Pulse 100 Oximetry Medical Decision Making - Medical Decision Making Patient reevaluated and resting comfortably in bed. Patient does not want any further medications. Patient also does not want prescription. Patient updated on results and need for follow-up. Patient advised no heavy lifting - Radiology Data Radiology results: image reviewed (Lumbar spine x-rays reveal no acute process) Disposition Clinical Impression: Low back pain Disposition: HOME SELF-CARE Condition: Stable Instructions (If sedation given, give patient instructions): Acute Low Back Pain (ED) Additional Instructions: Please follow-up with your primary care physician or [facility] in the next day or 2 for recheck and further restrictions. Ibuprofen as needed for discomfort. Ice to affected area. Return for weakness, loss of control of bowel or bladder, worsening symptoms or any other concerns. Is patient prescribed a controlled substance at d/c from ED?: No Referrals: Krunal Martinez DO [Primary Care Provider] - 1-2 days Time of Disposition: 11:18
--- NOTE | 2020-10-25 10:51 | XR ---
EXAMINATION TYPE: XR lumbosacral spine min 4V DATE OF EXAM: 10/25/2020 CLINICAL HISTORY: Injury with pain. TECHNIQUE: Frontal, lateral, and oblique images of the lumbar spine are obtained. COMPARISON: CT lumbar spine April 18, 2020 FINDINGS: There are 6 lumbar type vertebral bodies redemonstrated. The lumbar spine shows stable an d satisfactory alignment without evidence of acute fracture or dislocation. Vertebral body heights an d disk space heights are stable and within normal limits. The oblique images appear within normal l imits. The overlying soft tissue appears within normal limits. IMPRESSION: No acute fracture or dislocation is seen in the lumbar spine.
[2020-10-25 11:34] VITALS: BP 119/85; PULSE 76
== END 2020-10-25 11:20 | disposition home or self-care (01) ==
LOC: EC 09:54
DX: M54.5 Low back pain (principal); F17.200 Nicotine dependence, unspecified, uncomplicated; X50.0XXA Overexertion from strenuous movement or load, initial encounter; Y99.0 Civilian activity done for income or pay
CPT/HCPCS: 72110; 99283; 96372; J1170; J1885